=== PATIENT | female | born 1945 | race Caucasian/White ===

== ENCOUNTER → 2016-10-16 | Outpatient (CLI) | payer MEDICARE, BC ==
[2016-10-16 08:46] LABS: CH 31.9; CHCM 33.2; HCT 36.4 % (34.0-46.0); MCHC 33.1 g/dL (31.0-37.0); MCV 96.7 fL (80.0-100.0); Mean Platelet Volume 8.5; RBC 3.76 m/uL (3.80-5.40); RDW 13.3 % (11.5-15.5); WBC 5.7 k/uL (3.8-10.6)
[2016-10-16 09:06] LABS: Hemoglobin A1C 5.5 % (4.2-6.1)
[2016-10-16 09:36] LABS: Erythrocyte Sedimentation Rate 41 mm/hr (0-20)
[2016-10-16 12:31] LABS: ALT 34 U/L (9-52); AST 30 U/L (14-36); Alkaline Phosphatase 93 U/L (38-126); Anion Gap 10 mmol/L; Blood Urea Nitrogen 14 mg/dL (7-17); C Reactive Protein 7.4 mg/L (<10.0); Calcium 9.2 mg/dL (8.4-10.2); Carbon Dioxide 29 mmol/L (22-30); Chloride 106 mmol/L (98-107); Creatine Kinase 74 U/L (30-135); Glucose 107 mg/dL (74-99); Magnesium 1.9 mg/dL (1.6-2.3); Non-African American GFR(MDRD) >60 (>60 ml/min/1.73 sqM); Potassium 4.4 mmol/L (3.5-5.1); Sodium 145 mmol/L (137-145); Total Bilirubin 0.5 mg/dL (0.2-1.3); Total Protein 7.3 g/dL (6.3-8.2)
[2016-10-16 13:17] LABS: Vitamin B12 570 pg/mL
[2016-10-17 06:36] LABS: Cyclic Citrullinated Pep IgG 35 UNITS (<20)
[2016-10-21 09:28] LABS: Vitamin E (Alpha Tocopherol) 2063 ug/dL (500-1800)
[2016-10-23 01:42] LABS: Vitamin K 658 pg/mL (80-1160)
[2016-10-28 09:39] LABS: Mis test requested (Blood) Niacin(Vitamin B3)
== END | disposition home or self-care (01) ==
LOC: LABWHC1 07:49
PROVIDERS: ATTEND Psychiatry & Neurology Neurology
DX: M79.7 Fibromyalgia (principal); G89.29 Other chronic pain
CPT/HCPCS: 36415; 80053; 82306; 82550; 82607; 83036; 83519; 83735; 84207; 84425; 84446; 84590; 84591; 84597; 85027; 85652; 86140; 86200; 86235

== ENCOUNTER → 2016-10-28 | Outpatient (CLI) | payer MEDICARE, BC ==
[2016-10-28 16:19] LABS: ANA w/Reflex to Titer NEGATIVE (NEGATIVE)
[2016-10-29 05:44] LABS: Cyclic Citrullinated Pep IgG 32 UNITS (<20)
[2016-10-30 13:52] LABS: Scleroderma 70 Antibody 42 UNITS (<20)
[2016-11-04 11:43] LABS: Mis test requested (Blood) PM-Scl Antibody
== END ==
LOC: LABWHC1 07:39
PROVIDERS: ATTEND Psychiatry & Neurology Pain Medicine
DX: M79.7 Fibromyalgia (principal); Z79.899 Other long term (current) drug therapy
CPT/HCPCS: 36415; 83516; 84439; 84443; 84481; 86038; 86200; 86225; 86235

== ENCOUNTER → 2017-01-16 | Outpatient (CLI) | payer MEDICARE, BC ==
--- NOTE | 2017-01-16 10:41 | XR ---
EXAMINATION TYPE: XR knee limited bilateral DATE OF EXAM: 01/16/2017 10:19 AM COMPARISON: NONE HISTORY: Knee pain TECHNIQUE: Bilateral knees 2 views each FINDINGS: Right knee: There is narrowing of the medial compartment joint space. Medial tibial plateau spurring is present. Lateral femoral condylar spurring is present. Posterior patellar spurring is present. No joint effusion is evident. Left knee: There is noted medial compartment joint space. Medial femoral condylar spurring is present . A small lateral femoral condylar spur is present. No joint effusion is evident. Posterior patellar spurring is present. IMPRESSION: 1. 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
== END | disposition home or self-care (01) ==
LOC: RADXRMAIN 10:01
PROVIDERS: ATTEND Psychiatry & Neurology Pain Medicine
DX: M17.0 Bilateral primary osteoarthritis of knee (principal)

== ENCOUNTER → 2017-01-29 | Outpatient (CLI) | payer MEDICARE, BC ==
--- NOTE | 2017-01-30 07:47 | MR ---
EXAMINATION TYPE: MR angio head wo con DATE OF EXAM: 01/29/2017 COMPARISON: NONE HISTORY: Pt had Aneurysm with clips, info scanned TECHNIQUE: Time of flight images focusing on the [place] of [place] were performed without contrast. FINDINGS: The vertebrobasilar system, internal carotid arteries are patent. There is no evident aneur ysm or vascular malformation. No significant stenosis or atheromatous change. Susceptibility artifact is present over the left temporal region calvarium and scalp likely due to patient's known clips, pa tient is post craniotomy on the left. IMPRESSION: No evident aneurysm in the [place] of [place].
== END | disposition home or self-care (01) ==
LOC: RADMRIMAIN 18:13
PROVIDERS: ATTEND Psychiatry & Neurology Pain Medicine
DX: I72.9 Aneurysm of unspecified site (principal)
CPT/HCPCS: 70544

== ENCOUNTER → 2017-05-22 | Outpatient (CLI) | payer MEDICARE, BC | END | disposition home or self-care (01) | LOC: LABWHC1 14:04 | PROVIDERS: ATTEND Psychiatry & Neurology Pain Medicine | DX: Z01.810 Encounter for preprocedural cardiovascular examination (principal) | CPT/HCPCS: 36415; 93005 ==

== ENCOUNTER → 2017-08-12 | Outpatient (CLI) | payer MEDICARE, BC ==
--- NOTE | 2017-08-12 15:46 | BD ---
EXAMINATION TYPE: MG DEXA axial skeleton. DATE OF EXAM: 08/12/2017 COMPARISON: NONE CLINICAL HISTORY: Height: 64 Weight: 217.7 FRAX RISK QUESTIONS: Alcohol (3 or more units per day): no Family History (Parent hip fracture): no Glucocorticoids (More than 3mos): no (Ex: prednisone, prednisolone, methylprednisolone, dexamethasone, and hydrocortisone). History of Fracture in Adulthood: no Secondary Osteoporosis: 1. Type 1 Diabetes: no 2. Hyperthyroidism: no 3. Menopause before 45: no 4. Malnutrition: no 5. Chronic liver disease: no Rheumatoid Arthritis: no Current Tobacco Use: no RISK FACTORS HISTORY OF: Hip Fracture (Right/Left): no Spine Fracture: no History of Wrist Fracture: no Surgery to Spine/Hip(right/left)/Wrist (right/left): no Family History of Osteoporosis: no Active: sometimes Diet low in dairy products/other sources of calcium: no Postmenopausal woman: hysterectomy at age 55 Lost more than 2 inches in height since high school: no Frequent falls: no Poor Health: no Hyperparathyroidism: no Adrenal Insufficiency: no MEDICATIONS: lidocaine cream, omeprazole, gabapentin, fluticasone, methocorberrel, trazodone, montelu kast, ibuprofen Thyroid Medications: amourthyroid How Lon year Additional History: EXAM MEASUREMENTS: Bone mineral densitometry was performed using the [employer] System. Bone mineral density as measured about the Lumbar spine is: ----- L1-L4(G/cm2): 1.190 T Score Values are as follows: ----- L2: -0.4 ----- L3: 0.6 ----- L4: 1.1 ----- L1-L4: 0.1 Bone mineral density baseline Bone mineral density about the R hip (g/cm2): 0.764 Bone mineral density about the L hip (g/cm2): 0.859 T Score values are as follows: -----R Neck: -2.0 -----L Neck: -1.3 -----R Total: -1.7 -----L Total: -1.4 Bone mineral density baseline IMPRESSION: Osteopenia about the lumbar spine. NOTE: T-SCORE=SD OF THE YOUNG ADULT MEAN.
--- NOTE | 2017-08-22 11:40 | MM ---
Reason for exam: screening (asymptomatic). Last mammogram was performed 2 years ago. History: Patient is postmenopausal. Family history of breast cancer in maternal grandmother and breast cancer in mother. Pre-pectoral saline implants in both breasts, 2004. Physical Findings: A clinical breast exam by your physician is recommended on an annual basis and results should be correlated with mammographic findings. MG 3D Screen Mammo Imp/Cad Bilateral CC, MLO, and ID view(s) were taken. Prior study comparison: August 24, 2015, mammogram, performed at [facility]. August 09, 2014, mammogram, performed at [facility]. There are scattered fibroglandular densities. Retropectoral saline implants. New 5mm circumscribed mass 12 o'clock subareolar left breast. ASSESSMENT: Incomplete: need additional imaging evaluation, BI-RAD 0 RECOMMENDATION: Ultrasound of the left breast. [facility] will attempt to contact patient to return for ultrasound.
== END | disposition home or self-care (01) ==
LOC: RADMAMWWP 13:42
PROVIDERS: ATTEND Family Medicine
DX: Z12.31 Encounter for screening mammogram for malignant neoplasm of breast (principal); M85.88 Other specified disorders of bone density and structure, other site; Z78.0 Asymptomatic menopausal state
CPT/HCPCS: 77080; 77063; G0202

== ENCOUNTER → 2017-09-01 | Outpatient (CLI) | payer MEDICARE, BC | END | disposition home or self-care (01) | LOC: LABWHC1 15:09 | PROVIDERS: ATTEND Psychiatry & Neurology Pain Medicine | DX: Z51.81 Encounter for therapeutic drug level monitoring (principal); Z79.899 Other long term (current) drug therapy | CPT/HCPCS: 36415; 82306; 82310 ==

== ENCOUNTER → 2017-09-01 | Outpatient (CLI) | payer MEDICARE, BC ==
--- NOTE | 2017-09-02 08:13 | USB ---
Reason for exam: additional evaluation requested from abnormal screening. History: Patient is postmenopausal. Family history of breast cancer in maternal grandmother and breast cancer in mother. Pre-pectoral saline implants in both breasts, 2004. Physical Findings: Nurse did not find any significant physical abnormalities on exam. US Breast Workup Limited LT Left breast ultrasound includes all four quadrants, the retroareolar region and axilla. Finding demonstrates a 0.5 x 0.3 x 0.6cm oval, solid, vascular lesion near skin line at 10 o'clock. Recommendation is for dermatologic consult and surgical excision as this mass is partially located at the skin and there is a risk of chemical mastitis with versus guided biopsy. These results were verbally communicated with the patient and result sheet given to the patient on 09/01/17. ASSESSMENT: Suspicious, BI-RAD 4 RECOMMENDATION: Surgical consultation and localization and excision of the left breast. Manage patient on a clinical basis. Called Dr. Gipson with mammographic findings and office with contact the patient to follow up. PRELIMINARY REPORT CALLED AND FAXED TO DR. GIPSON ON 09/02/17.
== END | disposition home or self-care (01) ==
LOC: RADUSWWP 14:16
PROVIDERS: ATTEND Family Medicine
DX: R92.8 Other abnormal and inconclusive findings on diagnostic imaging of breast (principal)

== ENCOUNTER 2017-10-07 09:46 | Day surgery (SDC) | payer MEDICARE, BC ==
[2017-10-01 11:18] VITALS: BMI 34.4
[~2017-10-07 09:46] MED LIST: DEXAMETHASONE SOD PHOSPHATE 10 MG/ML 1 ML VIAL IV ONE; HEPARIN SODIUM,PORCINE 5,000 UNIT/ML 1 ML VIAL SQ ONE; LACTATED RINGERS 1,000 ML IV SCH; MIDAZOLAM 2 MG/2 ML VIAL IV PRN; MORPHINE SULFATE 4 MG/ML SYRINGE IV PRN; ONDANSETRON 4 MG/2 ML VIAL IVP ONE; Pre Op ABX Message 1 EACH MISC MISCELLANE ONE
[2017-10-07] MEDS ORDERED: LIDOCAINE 1% 20 ML VIAL (10MG/ML) FOR IV START INTRADERMA ONE (10:44)
[2017-10-07] MEDS ORDERED: ALPRAZolam 0.25 MG TAB PO ONE (10:51)
[2017-10-07] MEDS ORDERED: LIDOCAINE 1% INJ 10MG/ML (20 ML MDV) SQ ONE ×2 (11:32→14:31)
[2017-10-07] MEDS ORDERED: SODIUM BICARB 4% 5 ML VIAL (0.48 MEQ/ML) MISCELLANE ONE (11:32)
[2017-10-07] MEDS ORDERED: HEPARIN SODIUM,PORCINE 5,000 UNIT/ML 1 ML VIAL SQ ONE (14:31)
[2017-10-07] MEDS ORDERED: fentaNYL (PF) 50 MCG/ML 2 ML AMP ONE (14:43)
[2017-10-07] MEDS ORDERED: LIDOCAINE 1% INJ 10MG/ML (20 ML MDV) ONE (14:43)
[2017-10-07] MEDS ORDERED: SUCCINYLCHOLINE CHLORIDE VIAL 200 MG/10 ML VIAL IV ONE (14:43)
[2017-10-07] MEDS ORDERED: MIDAZOLAM 2 MG/2 ML VIAL ONE (14:43)
[2017-10-07] MEDS ORDERED: PROPOFOL 10 MG/ML 20 ML VIAL IV ONE (14:43)
--- NOTE | 2017-10-07 15:25 | P.OP ---
Date of Procedure: 10/07/17 Preoperative Diagnosis: Mammographic/ultrasound abnormality left breast Postoperative Diagnosis: same Procedure(s) Performed: Left breast needle localization excisional biopsy in Anesthesia: NORMAA Surgeon: Dana Cagle Estimated Blood Loss (ml): 3 IV fluids (ml): 300 Pathology: other (left breast tissue) Condition: stable Disposition: PACU Indications for Procedure: Mammographic/ultrasound abnormality left breast Operative Findings: Left breast lesion Description of Procedure: Patient was taken to the operating room and following induction of anesthesia the left breast was prepped and draped in a sterile fashion. Circumareolar incision was made and carried down to the skin. Surrounding tissue was excised with a portion of the thickened periareolar tissue. The specimen was sent for x -ray. After assured that hemostasis was attained the tissue was closed using a 4-0 Monocryl. Steri-Strips were applied. Patient tolerated procedure in stable condition. All instrument and sponge counts were correct at the end of the case
--- NOTE | 2017-10-07 15:26 | P.DS ---
Providers Attending physician: Dana Cagle Primary care physician: Steven Gipson Plan - Discharge Summary New Discharge Prescriptions: No Action Thyroid,Pork [[place] Thyroid] 60 mg PO SUTUWEFRSA Gabapentin 800 mg PO Q6HR Aspirin [Children's Aspirin] 81 mg PO HS Omeprazole [PriLOSEC] 20 mg PO AC-BRKFST Lidocaine 5% Oint [Xylocaine 5% Oint] 1 applic TOPICAL Q6HR PRN PRN Reason: Pain Montelukast [Singulair] 10 mg PO HS Ibuprofen [Motrin] 800 mg PO TID traZODone HCL [Desyrel] 100 mg PO HS Methocarbamol [Robaxin] 500 mg PO TID Fluticasone Nasal [place] [Flonase Nasal [place]] 1 spray EA NOSTRIL DAILY Albuterol Inhaler [Ventolin Hfa Inhaler] 1 - 2 puff INHALATION Q6HR PRN PRN Reason: Dyspnea traZODone HCL 0.25 tab PO HS Pyridoxine HCl (Vitamin B6) [Vitamin B-6] 100 mg PO DAILY Discharge Medication List Aspirin [Children's Aspirin] 81 mg PO HS 09/11/17 [History] Fluticasone Nasal [place] [Flonase Nasal [place]] 1 spray EA NOSTRIL DAILY 09/11/17 [History] Gabapentin 800 mg PO Q6HR 09/11/17 [History] Ibuprofen [Motrin] 800 mg PO TID 09/11/17 [History] Lidocaine 5% Oint [Xylocaine 5% Oint] 1 applic TOPICAL Q6HR PRN 09/11/17 [ History] Methocarbamol [Robaxin] 500 mg PO TID 09/11/17 [History] Montelukast [Singulair] 10 mg PO HS 09/11/17 [History] Omeprazole [PriLOSEC] 20 mg PO AC-BRKFST 09/11/17 [History] Thyroid,Pork [[place] Thyroid] 60 mg PO SUTUWEFRSA 09/11/17 [History] traZODone HCL [Desyrel] 100 mg PO HS 09/11/17 [History] Albuterol Inhaler [Ventolin Hfa Inhaler] 1 - 2 puff INHALATION Q6HR PRN [History] Pyridoxine HCl (Vitamin B6) [Vitamin B-6] 100 mg PO DAILY 10/01/17 [History] traZODone HCL 0.25 tab PO HS 10/01/17 [History] Follow up Appointment(s)/Referral(s): Dana Cagle MD [STAFF PHYSICIAN] - 1 Week Activity/Diet/Wound Care/Special Instructions: do not drive today do not shower for 48 hours wear bra at all times Discharge Disposition: HOME SELF-CARE
[2017-10-07 15:41] VITALS: TEMP 98
--- NOTE | 2017-10-07 15:53 | USB ---
EXAM: Needle localization with wire placement. CLINICAL HISTORY: Abnormal mammogram left TECHNIQUE: Needle localization with wire placement and surgical excision of area of concern in the left breast. Presurgical diagnostic two-view left breast mammogram. COMPARISON: Left breast ultrasound September 01, 2017. Three-D screening mammogram August 12, 2017. FINDINGS: The procedure of needle localization with wire placement and than surgical excision was explained to the patient. Benefits, alternatives, and risks were discussed. An informed consent was then obtained. Preprocedure imaging redemonstrates a 6 mm round hyperechoic hypervascular lesion just below the dermal layer in the left breast 10:00 position zone a near level of nipple. The overlying skin was prepped and draped in usual sterile fashion. Lidocaine buffered with bicarbonate was used as anesthetic into the skin and subcutaneous tissue up to the level of area of concern. Lidocaine with epinephrine is used as anesthetic in the deeper tissue. A 5 cm needle was used. It was placed under ultrasound guidance. At this point, wire was placed and the needle was withdrawn. The wire was fixed to patient's skin. Surgeon requested postprocedure mammogram to document wire into mammographic planes. The patient tolerated the procedure well without any immediate complication. The patient was kept in the radiology department for short stay after the procedure and then taken to surgery for surgical excision. Targeted wire is identified in specimen mammogram. The patient was kept in hospital for short stay after the procedure and then discharged home in stable condition. IMPRESSION: Successful, uncomplicated needle localization with wire placement and surgical excision of targeted ultrasound lesion in the left breast, full pathology results to follow. Intermediate index of suspicion noted at time of procedure. Pathology Results: Malignant A. LEFT BREAST, EXCISION BIOPSY: INTRADUCTAL PAPILLOMA WITH ATYPIA, FINAL CHARACTERIZATION PENDING CONSULTATION. SEE ADDENDUM/FINAL DIAGNOSIS. B. BREAST, LEFT, ANTERIOR MARGIN TISSUE, EXCISION: BENIGN SKIN AND SUBCUTANEOUS TISSUE WITHOUT SIGNIFICANT HISTOPATHOLOGIC CHANGES. ADDENDUM REPORT BREAST, LEFT, LUMPECTOMY ([id number], PART A, SLIDES A1-A4; 10/07/2017): DUCTAL CARCINOMA IN SITU (DCIS), LOW NUCLEAR GRADE, MEASURING 0.35 CM IN GREATEST DIMENSION, INVOLVING AN INTRADUCTAL PAPILLOMA. Recommendation Surgical consult of the left breast. [facility]
[2017-10-07 16:30] VITALS: RESP 16
[2017-10-07] MEDS ORDERED: IBUPROFEN 200 MG TAB PO ONE (16:42)
[2017-10-07 16:46] VITALS: BP 175/77; PULSE 74
== END 2017-10-07 17:17 | disposition home or self-care (01) ==
LOC: OR 09:46
PROVIDERS: ATTEND Surgery
DX: D24.2 Benign neoplasm of left breast (principal); D05.12 Intraductal carcinoma in situ of left breast; Z80.3 Family history of malignant neoplasm of breast; Z98.82 Breast implant status; M46.1 Sacroiliitis, not elsewhere classified; M79.7 Fibromyalgia; N83.9 Noninflammatory disorder of ovary, fallopian tube and broad ligament, unspecified; M54.5 Low back pain; G89.29 Other chronic pain; E07.9 Disorder of thyroid, unspecified; K21.9 Gastro-esophageal reflux disease without esophagitis; Z79.899 Other long term (current) drug therapy; Z79.51 Long term (current) use of inhaled steroids; Z79.890 Hormone replacement therapy; Z79.82 Long term (current) use of aspirin; Z79.1 Long term (current) use of non-steroidal anti-inflammatories (NSAID); Z91.09 Other allergy status, other than to drugs and biological substances; Z88.8 Allergy status to other drugs, medicaments and biological substances; Z87.891 Personal history of nicotine dependence
CPT/HCPCS: 19125; 88342; 88307; 88341; 77065; 76098; 19285; J2250; J0330; J1644; J1100; J2405; J2001; J3010; J2704

== ENCOUNTER → 2017-12-08 | Outpatient (CLI) | payer MEDICARE, BC | END | disposition home or self-care (01) | LOC: LABWHC1 11:11 | PROVIDERS: ATTEND Nurse Practitioner Acute Care | DX: I49.9 Cardiac arrhythmia, unspecified (principal) | CPT/HCPCS: 93005 ==

== ENCOUNTER 2017-12-27 15:03 | Emergency (ER) | payer BC, MEDICARE, OTHER ==
[2017-12-27] MEDS ORDERED: RX INFO: IV CONTRAST WAS GIVEN 1 EACH MISC MISCELLANE PRN (15:27)
[2017-12-27 15:29] VITALS: PULSE 74; RESP 96; TEMP 98.2
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
[2017-12-27 16:12] LABS: Basophils % (A) 0 %; Eosinophils # (A) 0.4 k/uL (0-0.7); Eosinophils % (A) 4 %; HCT 34.2 % (34.0-46.0); HGB 11.5 gm/dL (11.4-16.0); Lymphocytes % (A) 23 %; MCH 31.6 pg (25.0-35.0); MCHC 33.7 g/dL (31.0-37.0); MCV 93.6 fL (80.0-100.0); Mean Platelet Volume 7.8; Monocytes # (A) 0.4 k/uL (0-1.0); Monocytes % (A) 5 %; Neutrophils # (A) 5.7 k/uL (1.3-7.7); Neutrophils % (A) 67 %; Platelet Count 193 k/uL (150-450); RBC 3.65 m/uL (3.80-5.40); RDW 12.9 % (11.5-15.5); WBC 8.6 k/uL (3.8-10.6)
[2017-12-27] MEDS ORDERED: MORPHINE SULFATE 4 MG/ML SYRINGE IVP STA (16:20)
[2017-12-27 16:28] LABS: Albumin 4.3 g/dL (3.5-5.0); Calcium 9.4 mg/dL (8.4-10.2); Total Bilirubin 0.3 mg/dL (0.2-1.3); Total Protein 6.9 g/dL (6.3-8.2)
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
[2017-12-27 18:04] VITALS: BP 158/80
[2017-12-27 18:08] LABS: Appearance,Urine Clear (Clear); Bilirubin,Urine Negative (Negative); Blood,Urine Negative (Negative); Color,Urine Light Yellow; Glucose,Urine (UA) Negative (Negative); Ketones,Urine Negative (Negative); Leukocyte Esterase,Urine Negative (Negative); Nitrite,Urine Negative (Negative); Protein,Urine Negative (Negative); Urobilinogen,Urine <2.0 mg/dL (<2.0)
--- NOTE | 2017-12-27 18:16 | XR ---
EXAMINATION TYPE: XR chest 2V DATE OF EXAM: 12/27/2017 COMPARISON: NONE HISTORY: Shortness of breath TECHNIQUE: Frontal and lateral views of the chest are obtained. FINDINGS: Scattered senescent parenchymal changes noted. Hyperinflation compatible with COPD. No evidence for infiltrate. No evidence for atelectasis. Heart size is stable. Mediastinal structures are stable and grossly unremarkable. No evidence for hilar prominence. Degenerative changes dorsal spine. Curvature dorsal spine. IMPRESSION: 1. No evidence for acute pulmonary disease.
== END 2017-12-27 18:43 | disposition home or self-care (01) ==
LOC: EC 15:03
DX: S30.1XXA Contusion of abdominal wall, initial encounter (principal); C64.1 Malignant neoplasm of right kidney, except renal pelvis; R07.89 Other chest pain; M79.7 Fibromyalgia; K21.9 Gastro-esophageal reflux disease without esophagitis; E07.9 Disorder of thyroid, unspecified; Z85.3 Personal history of malignant neoplasm of breast; Z85.43 Personal history of malignant neoplasm of ovary; Z87.891 Personal history of nicotine dependence; Z79.82 Long term (current) use of aspirin; Z79.51 Long term (current) use of inhaled steroids; Z79.899 Other long term (current) drug therapy; Z88.8 Allergy status to other drugs, medicaments and biological substances; Z91.048 Other nonmedicinal substance allergy status; Z91.09 Other allergy status, other than to drugs and biological substances; V89.2XXA Person injured in unspecified motor-vehicle accident, traffic, initial encounter; Y92.410 Unspecified street and highway as the place of occurrence of the external cause
CPT/HCPCS: 36415; 80053; 85025; 81003; 71046; 72125; 70450; 74177; 99285; 96374; J2270; Q9967

== ENCOUNTER 2017-12-30 08:15 | Day surgery (SDC) | payer MEDICARE, BC ==
[2017-12-25 14:04] VITALS: BMI 35.0
[~2017-12-30 08:15] MED LIST changes: -HEPARIN SODIUM,PORCINE 5,000 UNIT/ML 1 ML VIAL SQ ONE; -MORPHINE SULFATE 4 MG/ML SYRINGE IV PRN; -ONDANSETRON 4 MG/2 ML VIAL IVP ONE; +ONDANSETRON ODT 4 MG TAB PO ONE; -Pre Op ABX Message 1 EACH MISC MISCELLANE ONE; +ceFAZolin IN SWFI 2 GM/20 ML SYRINGE IVP ONE
[2017-12-30] MEDS ORDERED: LIDOCAINE 1% 20 ML VIAL (10MG/ML) FOR IV START INTRADERMA ONE (09:29)
[2017-12-30] MEDS ORDERED: ONDANSETRON 4 MG/2 ML VIAL IVP ONE (09:30)
[2017-12-30] MEDS ORDERED: HEPARIN SODIUM,PORCINE 5,000 UNIT/ML 1 ML VIAL SQ ONE (10:00)
[2017-12-30] MEDS ORDERED: fentaNYL (PF) 50 MCG/ML 2 ML AMP ONE (10:25)
[2017-12-30] MEDS ORDERED: SUCCINYLCHOLINE CHLORIDE 100 MG/5 ML SYR IV ONE (10:25)
[2017-12-30] MEDS ORDERED: LIDOCAINE 1% INJ 10MG/ML (20 ML MDV) ONE (10:25)
[2017-12-30] MEDS ORDERED: PROPOFOL 10 MG/ML 20 ML VIAL IV ONE (10:25)
[2017-12-30] MEDS ORDERED: LIDOCAINE (PF) 10 MG/ML 2 ML VIAL SQ ONE ×2 (10:52)
--- NOTE | 2017-12-30 11:28 | P.OP ---
Date of Procedure: 12/30/17 Preoperative Diagnosis: Positive DCIS margin left breast prior lumpectomy Postoperative Diagnosis: Reexcision lumpectomy area left breast Procedure(s) Performed: Left breast lumpectomy, with tissue transfer and rearrangement Anesthesia: JOANA Surgeon: Dana Cagle Estimated Blood Loss (ml): 5 IV fluids (ml): 200 Pathology: other (Left breast tissue) Condition: stable Disposition: PACU Indications for Procedure: Left breast DCIS Operative Findings: Left breast is fibroglandular tissue Description of Procedure: The patient was taken to the operating room and following induction of general anesthesia the left breast was prepped and draped in a sterile fashion. Circumareolar incision had previously been made and incision was carried down from this area into the breast parenchyma. The tissue was carried down posteriorly to the pectoralis muscle underneath which was an implant. This was very superficial. It was followed superiorly approximately 2 cm and circumferential removal of this tissue was performed. Following this after assured that hemostasis was attained the tissue was freed from the surrounding areas superiorly and inferiorly. Approximately 4 cm in longitudinal were free to a distance of approximately 2 cm superior margin and one centimeter inferior. This tissue was then rotated into the area of the defect and secured using 3-0 Vicryl suture. The total area was approximately 12 cm. The tissue was very superficial and the area of concern was immediately underneath the skin incision. The depth to the implant was only approximately 1-1/2 cm. Following this the deeper tissues were closed with Vicryl suture. The skin was closed with 4-0 Monocryl. The patient tolerated the procedure in stable condition. The specimen was painted for orientation. All instrument and sponge counts were correct at the end of the case.
--- NOTE | 2017-12-30 11:30 | P.DS ---
Providers Attending physician: Dana Cagle Primary care physician: Steven Gipson Plan - Discharge Summary New Discharge Prescriptions: No Action Thyroid,Pork [[place] Thyroid] 60 mg PO SUTUWEFRSA Gabapentin 800 mg PO Q6HR Aspirin [Children's Aspirin] 81 mg PO HS Omeprazole [PriLOSEC] 20 mg PO AC-BRKFST Lidocaine 5% Oint [Xylocaine 5% Oint] 1 applic TOPICAL Q6HR PRN PRN Reason: Pain Montelukast [Singulair] 10 mg PO HS Ibuprofen [Motrin] 800 mg PO TID Fluticasone Nasal [place] [Flonase Nasal [place]] 1 spray EA NOSTRIL DAILY Albuterol Inhaler [Ventolin Hfa Inhaler] 1 - 2 puff INHALATION QID PRN PRN Reason: sob traZODone HCL 150 mg PO HS Pyridoxine HCl (Vitamin B6) [Vitamin B-6] 100 mg PO DAILY Lidocaine Infusions 1 applicate IV DIRECTED Hydrocodone/Acetaminophen [[place] 5-325] 1 each PO Q6HR PRN #10 tab PRN Reason: Pain Muscle Relaxant Unkown 1 tab PO TID Discharge Medication List Aspirin [Children's Aspirin] 81 mg PO HS 09/11/17 [History] Fluticasone Nasal [place] [Flonase Nasal [place]] 1 spray EA NOSTRIL DAILY 09/11/17 [History] Gabapentin 800 mg PO Q6HR 09/11/17 [History] Ibuprofen [Motrin] 800 mg PO TID 09/11/17 [History] Lidocaine 5% Oint [Xylocaine 5% Oint] 1 applic TOPICAL Q6HR PRN 09/11/17 [ History] Montelukast [Singulair] 10 mg PO HS 09/11/17 [History] Omeprazole [PriLOSEC] 20 mg PO AC-BRKFST 09/11/17 [History] Thyroid,Pork [[place] Thyroid] 60 mg PO SUTUWEFRSA 09/11/17 [History] Albuterol Inhaler [Ventolin Hfa Inhaler] 1 - 2 puff INHALATION QID PRN 09/17/17 [History] Pyridoxine HCl (Vitamin B6) [Vitamin B-6] 100 mg PO DAILY 10/01/17 [History] traZODone HCL 150 mg PO HS 10/01/17 [History] Lidocaine Infusions 1 applicate IV DIRECTED 12/25/17 [History] Hydrocodone/Acetaminophen [[place] 5-325] 1 each PO Q6HR PRN #10 tab 12/27/17 [Rx] Muscle Relaxant Unkown 1 tab PO TID 12/30/17 [History] Follow up Appointment(s)/Referral(s): Dana Cagle MD [STAFF PHYSICIAN] - 1 Week Activity/Diet/Wound Care/Special Instructions: Do not drive today Dry at all times Patient may shower tomorrow Discharge Disposition: HOME SELF-CARE
[2017-12-30] MEDS: MORPHINE SULFATE 4 MG/ML SYRINGE IVP ONE ×2 (11:36→11:41)
[2017-12-30 11:39] VITALS: TEMP 96.8
[2017-12-30] MEDS: fentaNYL (PF) 50 MCG/ML 2 ML AMP IV PRN ×2 (11:46→12:00)
[2017-12-30] MEDS ORDERED: HYDROcodone/APAP 5-325MG 1 EACH TAB PO ONE (12:48)
[2017-12-30 13:00] VITALS: RESP 18
[2017-12-30 13:48] VITALS: BP 158/70; PULSE 66
== END 2017-12-30 13:52 | disposition home or self-care (01) ==
LOC: OR 08:15
PROVIDERS: ATTEND Surgery
DX: D05.12 Intraductal carcinoma in situ of left breast (principal); D24.2 Benign neoplasm of left breast; E07.9 Disorder of thyroid, unspecified; M79.7 Fibromyalgia; G43.909 Migraine, unspecified, not intractable, without status migrainosus; K21.9 Gastro-esophageal reflux disease without esophagitis; Z79.890 Hormone replacement therapy; Z79.82 Long term (current) use of aspirin; Z79.51 Long term (current) use of inhaled steroids; Z79.1 Long term (current) use of non-steroidal anti-inflammatories (NSAID); Z79.899 Other long term (current) drug therapy; J30.1 Allergic rhinitis due to pollen; Z88.8 Allergy status to other drugs, medicaments and biological substances; Z91.09 Other allergy status, other than to drugs and biological substances; Z87.891 Personal history of nicotine dependence
CPT/HCPCS: 88342; 88307; 19301; J2270; J2001 ×2; J1644; J1100; J2405; J3010; J0330; J2704; J0690

== ENCOUNTER → 2018-01-07 | Outpatient (CLI) | payer MEDICARE, BC ==
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
== END | disposition home or self-care (01) ==
LOC: RADXRMAIN 11:22
PROVIDERS: ATTEND Family Medicine
DX: M47.898 Other spondylosis, sacral and sacrococcygeal region (principal)
CPT/HCPCS: 72220

== ENCOUNTER → 2018-01-09 | Outpatient (CLI) | payer MEDICARE, BC ==
[2018-01-09 11:42] VITALS: BP 157/73; PULSE 64; TEMP 97.9; BMI 35.9
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
== END | disposition home or self-care (01) ==
LOC: WWCWWP 11:27
PROVIDERS: ATTEND Surgery
DX: Z53.9 Procedure and treatment not carried out, unspecified reason (principal)

== ENCOUNTER → 2018-01-14 | Outpatient (CLI) | payer OTHER, MEDICARE, BC ==
--- NOTE | 2018-01-14 16:13 | CT ---
EXAMINATION TYPE: CT brain wo con DATE OF EXAM: 01/14/2018 COMPARISON: 12/27/2017 INDICATION: Right sided headache. DLP: 1103 mGycm, Automated exposure control for dose reduction was used. CONTRAST: None CT of the brain is performed utilizing 3 mm thick sections through the posterior fossa and 3 mm thick sections through the remaining calvarium. Study is performed within 24 hours of arrival to the hosp [facility]. No abnormal hyperdensity is present to suggest an acute intracranial hemorrhage. No mass lesion is evident. No acute infarcts are evident. Artifact from an aneurysm clip at the left suprasellar cistern is present. Ventricles and sulci are appropriate for the patient age. Paranasal sinuses and mastoid air cells within the [id number] are clear. There is a prior temporal craniotomy. IMPRESSIONS: 1. No acute intracranial process. Findings appear stable from comparison.
== END | disposition home or self-care (01) ==
LOC: RADCTMAIN 15:46
PROVIDERS: ATTEND Family Medicine
DX: R51 Headache (principal)
CPT/HCPCS: 70450

== ENCOUNTER → 2018-01-16 | Outpatient (CLI) | payer OTHER, MEDICARE, BC ==
--- NOTE | 2018-01-17 02:33 | MR ---
EXAMINATION TYPE: MR brain wo/w con DATE OF EXAM: 01/16/2018 COMPARISON: NONE HISTORY: Headache TECHNIQUE: Multiplanar, multisequence images of the brain and brainstem is performed without and with IV contras t, utilizing 10 mL intravenous Gadavist . FINDINGS: There is some cerebral cortical atrophy. There is no mass effect nor midline shift. There i s no sign of intracranial hemorrhage. There is no evidence of cerebral edema. There is a single 5 mm focus of increased signal in the white matter right parietal lobe. The brain stem is intact. Corpus c allosum appears normal. Sella turcica appears normal. I see no pathologic enhancement. There is unifo rm enhancement of the pituitary gland. Pituitary stalk is in the midline. Optic chiasm appears normal . IMPRESSION: Mild atrophy appropriate for age. Single small focus of increased signal in the right par ietal lobe white matter of uncertain significance.
== END | disposition home or self-care (01) ==
LOC: RADMRIMAIN 20:35
PROVIDERS: ATTEND Psychiatry & Neurology Neurology
DX: G31.1 Senile degeneration of brain, not elsewhere classified (principal); R90.89 Other abnormal findings on diagnostic imaging of central nervous system
CPT/HCPCS: 70553; A9581

== ENCOUNTER 2018-01-20 09:23 | Day surgery (SDC) | payer MEDICARE, BC ==
[2018-01-16 10:12] VITALS: BMI 35.9
[~2018-01-20 09:23] MED LIST changes: -DEXAMETHASONE SOD PHOSPHATE 10 MG/ML 1 ML VIAL IV ONE; +HEPARIN SODIUM,PORCINE 5,000 UNIT/ML 1 ML VIAL SQ ONE; -LACTATED RINGERS 1,000 ML IV SCH; +LIDOCAINE 1% 20 ML VIAL (10MG/ML) FOR IV START INTRADERMA PRN; -MIDAZOLAM 2 MG/2 ML VIAL IV PRN; -ONDANSETRON ODT 4 MG TAB PO ONE; +Pre Op ABX Message 1 EACH MISC MISCELLANE ONE; -ceFAZolin IN SWFI 2 GM/20 ML SYRINGE IVP ONE
[2018-01-20] MEDS: LACTATED RINGERS 1,000 ML IV SCH (10:15)
[2018-01-20] MEDS ORDERED: ONDANSETRON 4 MG/2 ML VIAL IVP ONE ×2 (10:16→15:08)
[2018-01-20] MEDS ORDERED: HEPARIN SODIUM,PORCINE 5,000 UNIT/ML 1 ML VIAL SQ ONE (11:36)
--- NOTE | 2018-01-20 11:42 | P.PN ---
Progress Note - Text Progress Note Date: 01/20/18 The patient's case was reviewed with Dr. Mccall from medical oncology. The patient had a biopsy and was noted to have DCIS patient had re-excision and was noted to have additional DCIS close to the resection margin. All treatment options were discussed with the patient including close surveillance with radiation and possible anti-hormonal therapy. The patient has a positive family history of breast cancer. The patient opted for a mastectomy. The patient understands the risks and benefits. Additionally the patient has a prepectoral implant. The patient does not want reconstruction at this time. She understands the implant will be removed.
[2018-01-20] MEDS ORDERED: HYDROmorphone (PF) 1 MG/ML ONE (12:02)
[2018-01-20] MEDS ORDERED: SUCCINYLCHOLINE CHLORIDE 100 MG/5 ML SYR IV ONE (12:02)
[2018-01-20] MEDS ORDERED: PROPOFOL 10 MG/ML 20 ML VIAL IV ONE (12:02)
[2018-01-20] MEDS ORDERED: fentaNYL (PF) 50 MCG/ML 2 ML AMP ONE (12:02)
[2018-01-20] MEDS ORDERED: LIDOCAINE 1% INJ 10MG/ML (20 ML MDV) ONE (12:02)
[2018-01-20] MEDS ORDERED: SODIUM CHLORIDE 0.9% 50 ML with ceFAZolin 2,000 MG IV ONE ×2 (12:20)
[2018-01-20] MEDS ORDERED: LACTATED RINGERS 1,000 ML IV ONE ×3 (12:42)
--- NOTE | 2018-01-20 14:05 | P.OP ---
Date of Procedure: 01/20/18 Preoperative Diagnosis: Left breast DCIS Postoperative Diagnosis: Same Procedure(s) Performed: Left simple mastectomy and removal of breast implant Anesthesia: JOANA Surgeon: Dana Cagle Estimated Blood Loss (ml): 20 IV fluids (ml): 500 Pathology: other (Left breast) Condition: stable Disposition: PACU Indications for Procedure: Left breast ductal carcinoma in situ Operative Findings: Dense breast tissue Description of Procedure: The patient is a 72-year-old white female who underwent a left breast biopsy and was noted to have ductal carcinoma in situ. The lesion was close to the margins and the patient opted for a mastectomy. The patient had previously undergone breast implants and she wished the left breast implant to be removed. She was offered evaluation by plastic surgeon and refused. The patient was taken to the operating room and the left breast was prepped and draped in a sterile fashion. Superior and inferior skin flaps were developed down to the pectoralis major muscle. At the medial aspect of dissection the area of the implant was identified as it was inferiorly. The implant was easily extruded from its partially subpectoral location. The inferior skin flap continued to be developed. The breast was taken from medial to lateral off of the pectoralis muscle being careful to maintain hemostasis using the Harmonic scalpel. Several sutures were placed inferiorly at the site where the implant had been extruded. The wound was well irrigated. After we were assured that hemostasis was attained the deep tissues were closed using a 3-0 Vicryl suture. A [place] drain had been placed under the flaps. The skin was closed using 4-0 Monocryl. The drain was secured using a nylon suture. The patient tolerated the procedure in stable condition. All instrument and sponge counts were correct at the end of the case.
[2018-01-20] MEDS ORDERED: NALOXONE 0.4 MG/ML 1 ML VIAL IV PRN (14:07)
[2018-01-20] MEDS: fentaNYL (PF) 50 MCG/ML 2 ML AMP IV PRN ×2 (14:22→14:27)
[2018-01-20] MEDS: HYDROmorphone 0.5 MG/0.5 ML SYRINGE IVP PRN ×4 (14:45→23:04)
[2018-01-20] MEDS ORDERED: ALBUTEROL NEBULIZED 2.5 MG/3 ML INHALATION PRN (16:15)
[2018-01-20] MEDS ORDERED: LIDOCAINE 5% OINTMENT 50 GM JAR TOPICAL PRN (16:15)
[2018-01-20] MEDS: THYROID, PORK 30 MG TAB PO SCH (16:52)
[2018-01-20] MEDS: GABAPENTIN 400 MG CAP PO SCH ×2 (16:54→23:11)
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
[2018-01-20] MEDS: ONDANSETRON 4 MG/2 ML VIAL IVP PRN (20:27)
[2018-01-20] MEDS: DEXTROSE 5%-0.45% NACL 1,000 ML IV SCH (21:08)
[2018-01-20] MEDS: HEPARIN SODIUM,PORCINE 5,000 UNIT/ML 1 ML VIAL SQ SCH (21:10)
[2018-01-20] MEDS: traZODone HCL 50 MG TAB PO SCH (21:11)
[2018-01-20] MEDS: FAMOTIDINE 20 MG TAB PO SCH (21:11)
[2018-01-20] MEDS: MONTELUKAST 10 MG TAB PO SCH (21:11)
[2018-01-20] MEDS: METHOCARBAMOL 500 MG TAB PO PRN (23:25)
[2018-01-21] MEDS: HYDROmorphone 0.5 MG/0.5 ML SYRINGE IVP PRN ×4 (04:22→20:16)
[2018-01-21] MEDS: GABAPENTIN 400 MG CAP PO SCH ×4 (06:55→23:18)
[2018-01-21] MEDS: PANTOPRAZOLE 40 MG TABLET PO SCH (06:55)
[2018-01-21] MEDS: THYROID, PORK 30 MG TAB PO SCH (06:55)
[2018-01-21] MEDS: DEXTROSE 5%-0.45% NACL 1,000 ML IV SCH ×3 (06:56→17:17)
[2018-01-21 07:17] LABS: Basophils % (A) 0 %; Eosinophils # (A) 0.1 k/uL (0-0.7); Eosinophils % (A) 1 %; HCT 30.4 % (34.0-46.0); Lymphocytes # (A) 1.7 k/uL (1.0-4.8); Lymphocytes % (A) 18 %; MCH 31.7 pg (25.0-35.0); MCHC 32.4 g/dL (31.0-37.0); MCV 97.7 fL (80.0-100.0); Mean Platelet Volume 7.7; Monocytes # (A) 0.5 k/uL (0-1.0); Monocytes % (A) 6 %; Neutrophils % (A) 74 %; Platelet Count 162 k/uL (150-450); RBC 3.11 m/uL (3.80-5.40); RDW 13.2 % (11.5-15.5); WBC 9.5 k/uL (3.8-10.6)
[2018-01-21] MEDS: LACTATED RINGERS 1,000 ML IV SCH (07:21)
[2018-01-21 07:43] LABS: HGB 9.8 gm/dL (11.4-16.0)
[2018-01-21] MEDS: HEPARIN SODIUM,PORCINE 5,000 UNIT/ML 1 ML VIAL SQ SCH ×2 (09:09→20:15)
[2018-01-21] MEDS: FLUTICASONE 50MCG/SPRAY NASAL 16GM EA NOSTRIL SCH (09:09)
[2018-01-21] MEDS: FAMOTIDINE 20 MG TAB PO SCH (09:10)
--- NOTE | 2018-01-21 11:42 | P.PN ---
Subjective Progress Note Date: 01/21/18 Patient is postop day #1 left mastectomy. At this time she is having some nausea and has not tolerated her diet well. She has no complaints related to her incision. Her DEJON drainage is 15 mL and is serosanguineous. Hemoglobin is 9.8. Objective - Vital Signs Vital signs: Vital Signs Temp 98.0 F 01/21/18 07:45 Pulse 60 01/21/18 08:52 Resp 16 01/21/18 07:45 BP 118/72 01/21/18 07:45 Pulse Ox 96 01/21/18 07:45 Intake & Output 01/20/18 01/21/18 01/21/18 18:59 06:59 18:59 Intake Total 1300 Output Total 40 730 15 Balance 1260 -730 -15 Intake: IV 1300 Output: Drainage 20 30 15 Left Cheek 20 30 15 Urine 700 Estimated Blood Loss 20 Other: # Voids 1 1 - Constitutional General appearance: Present: obese - Respiratory Respiratory: bilateral: CTA - Cardiovascular Heart sounds: normal: S1, S2 - Integumentary Integumentary Comment(s): Incision clean and dry No evidence of hematoma DEJON serosanguineous - Psychiatric Psychiatric: Present: A&O x's 3, appropriate affect, intact judgment & insight - Labs CBC & Chem 7: 01/21/18 06:48 Labs: Abnormal Lab Results - Last 24 Hours (Table) 01/21/18 Range/Units 06:48 RBC 3.11 L (3.80-5.40) m/uL Hgb 9.8 L D (11.4-16.0) gm/dL Hct 30.4 L (34.0-46.0) % Assessment and Plan Assessment: Impression/plan: 1. Postop day left mastectomy 2. Nausea postoperative 3. History of hyperlipidemia 4. Hypothyroidism 5. ALLERGIC rhinitis 6. Fibromyalgia 7. Stop spinal stenosis 8. History of intracranial aneurysm 9. Insomnia 10. Asthma Plan: 1. Continue present therapy 2. Probable discharge home tomorrow
--- NOTE | 2018-01-21 12:07 | P.PN ---
Subjective Patient resting in bed states pain controlled encouraged to do deep breathing exercises. Objective - Vital Signs Vital signs: Vital Signs Temp 98.0 F 01/21/18 07:45 Pulse 60 01/21/18 08:52 Resp 16 01/21/18 07:45 BP 118/72 01/21/18 07:45 Pulse Ox 96 01/21/18 07:45 Intake & Output 01/20/18 01/21/18 01/21/18 18:59 06:59 18:59 Intake Total 1300 Output Total 40 730 15 Balance 1260 -730 -15 Intake: IV 1300 Output: Drainage 20 30 15 Left Cheek 20 30 15 Urine 700 Estimated Blood Loss 20 Other: # Voids 1 1 - Constitutional General appearance: Present: obese - EENT Eyes: Present: PERRLA Ears: bilateral: normal - Neck Neck: Present: normal ROM - Cardiovascular Rhythm: regular - Gastrointestinal General gastrointestinal: Present: soft Localized gastrointestinal: tender: diffuse - Integumentary Integumentary: Present: normal - Neurologic Neurologic: Present: CNII-XII intact - Psychiatric Psychiatric: Present: A&O x's 3, appropriate affect, intact judgment & insight - Labs CBC & Chem 7: 01/21/18 06:48 Labs: Abnormal Lab Results - Last 24 Hours (Table) 01/21/18 Range/Units 06:48 RBC 3.11 L (3.80-5.40) m/uL Hgb 9.8 L D (11.4-16.0) gm/dL Hct 30.4 L (34.0-46.0) % Assessment and Plan Plan: Assessment Left mastectomy postoperative History of hyperlipidemia Hypothyroidism ALLERGIC rhinitis Obesity BMI 35.9 Fibromyalgia Lumbar spinal stenosis History of intracranial aneurysm Asthma Plan Continue to monitor patient Stable for discharge
[2018-01-21 12:45] LABS: ALT 30 U/L (9-52); AST 20 U/L (14-36); Albumin 3.5 g/dL (3.5-5.0); Alkaline Phosphatase 61 U/L (38-126); Anion Gap 8 mmol/L; Blood Urea Nitrogen 14 mg/dL (7-17); Calcium 8.7 mg/dL (8.4-10.2); Carbon Dioxide 28 mmol/L (22-30); Chloride 102 mmol/L (98-107); Glucose 107 mg/dL (74-99); Potassium 4.1 mmol/L (3.5-5.1); Sodium 138 mmol/L (137-145); Total Bilirubin 0.4 mg/dL (0.2-1.3); Total Protein 5.8 g/dL (6.3-8.2)
[2018-01-21] MEDS: ACETAMINOPHEN TAB 500 MG TAB PO PRN (20:15)
[2018-01-21] MEDS: MONTELUKAST 10 MG TAB PO SCH (20:15)
[2018-01-21] MEDS: traZODone HCL 50 MG TAB PO SCH (20:16)
[2018-01-21] MEDS: METHOCARBAMOL 500 MG TAB PO PRN (23:18)
[2018-01-22] MEDS ORDERED: HYDROmorphone 0.5 MG/0.5 ML SYRINGE ONE (05:00)
[2018-01-22] MEDS: DEXTROSE 5%-0.45% NACL 1,000 ML IV SCH (06:20)
[2018-01-22] MEDS: PANTOPRAZOLE 40 MG TABLET PO SCH (06:23)
[2018-01-22] MEDS: GABAPENTIN 400 MG CAP PO SCH (06:23)
[2018-01-22] MEDS: ONDANSETRON 4 MG/2 ML VIAL IVP PRN (06:55)
--- NOTE | 2018-01-22 08:12 | P.PN ---
Subjective Progress Note Date: 01/22/18 Patient is postop day #2 left mastectomy. She is tolerating her diet. Her nausea has decreased. She has no complaints related to her incision. Her DEJON drainage is serosanguineous. Objective - Vital Signs Vital signs: Vital Signs Temp 98.2 F 01/21/18 23:16 Pulse 57 L 01/21/18 23:16 Resp 18 01/21/18 23:16 BP 122/71 01/21/18 23:16 Pulse Ox 94 L 01/21/18 23:16 Intake & Output 01/21/18 01/22/18 01/22/18 18:59 06:59 18:59 Intake Total 680 200 Output Total 15 50 Balance 665 150 Intake: Oral 680 200 Output: Drainage 15 50 Left Cheek 15 50 Other: # Voids 1 1 - Constitutional General appearance: Present: obese - Respiratory Respiratory: bilateral: CTA - Cardiovascular Rhythm: regular Heart sounds: normal: S1, S2 - Integumentary Integumentary Comment(s): Incision clean and dry No evidence of hematoma - Psychiatric Psychiatric: Present: A&O x's 3, appropriate affect, intact judgment & insight - Labs CBC & Chem 7: 01/21/18 06:48 01/21/18 06:48 Labs: Abnormal Lab Results - Last 24 Hours (Table) 01/21/18 Range/Units 06:48 Glucose 107 H (74-99) mg/dL Total Protein 5.8 L (6.3-8.2) g/dL Assessment and Plan Assessment: Impression/plan: 1. Postop day#2 left mastectomy 2. Nausea postoperative improved tolerating diet 3. History of hyperlipidemia 4. Hypothyroidism 5. ALLERGIC rhinitis 6. Fibromyalgia 7. Stop spinal stenosis 8. History of intracranial aneurysm 9. Insomnia 10. Asthma Plan: 1. Discharge home to be followed as an outpatient 2. Teach patient drain care
--- NOTE | 2018-01-22 08:15 | P.DS ---
Providers Attending physician: Dana Cagle Consults: 01/20/18 14:10 Consult Physician Routine Consulting Provider: Steven Gipson Consult Reason/Comments: medical managment Do you want consulting provider notified?: Yes Primary care physician: Steven Gipson Hospital Course: Patient is a 72-year-old white female status post left mastectomy. Initially postoperative she had some nausea and was kept in the hospital 1 extra day. At this time the nausea has improved and she is tolerating her diet. The plan is for discharge home to be followed as an outpatient. Plan - Discharge Summary Discharge Rx Participant: No New Discharge Prescriptions: No Action Thyroid,Pork [[place] Thyroid] 60 mg PO SUTUWEFRSA Gabapentin 800 mg PO Q6HR Aspirin [Children's Aspirin] 81 mg PO HS Omeprazole [PriLOSEC] 20 mg PO AC-BRKFST Lidocaine 5% Oint [Xylocaine 5% Oint] 1 applic TOPICAL Q6HR PRN PRN Reason: Pain Montelukast [Singulair] 10 mg PO HS Ibuprofen [Motrin] 800 mg PO TID Fluticasone Nasal [place] [Flonase Nasal [place]] 1 spray EA NOSTRIL DAILY Albuterol Inhaler [Ventolin Hfa Inhaler] 1 - 2 puff INHALATION QID PRN PRN Reason: sob traZODone HCL 150 mg PO HS Pyridoxine HCl (Vitamin B6) [Vitamin B-6] 100 mg PO DAILY Lidocaine Infusions 1 applicate IV DIRECTED Methocarbamol [Robaxin] 1,500 mg PO TID Discharge Medication List Aspirin [Children's Aspirin] 81 mg PO HS 09/11/17 [History] Fluticasone Nasal [place] [Flonase Nasal [place]] 1 spray EA NOSTRIL DAILY 09/11/17 [History] Gabapentin 800 mg PO Q6HR 09/11/17 [History] Ibuprofen [Motrin] 800 mg PO TID 09/11/17 [History] Lidocaine 5% Oint [Xylocaine 5% Oint] 1 applic TOPICAL Q6HR PRN 09/11/17 [ History] Montelukast [Singulair] 10 mg PO HS 09/11/17 [History] Omeprazole [PriLOSEC] 20 mg PO AC-BRKFST 09/11/17 [History] Thyroid,Pork [[place] Thyroid] 60 mg PO SUTUWEFRSA 09/11/17 [History] Albuterol Inhaler [Ventolin Hfa Inhaler] 1 - 2 puff INHALATION QID PRN 09/17/17 [History] Pyridoxine HCl (Vitamin B6) [Vitamin B-6] 100 mg PO DAILY 10/01/17 [History] traZODone HCL 150 mg PO HS 10/01/17 [History] Lidocaine Infusions 1 applicate IV DIRECTED 12/25/17 [History] Methocarbamol [Robaxin] 1,500 mg PO TID 12/30/17 [History] Follow up Appointment(s)/Referral(s): Dana Cagle MD [STAFF PHYSICIAN] - 1 Week Activity/Diet/Wound Care/Special Instructions: Do not drive until seen by Dr. Gipson Drain and record DEJON output twice a day and when necessary Discharge Disposition: HOME SELF-CARE
[2018-01-22] MEDS: ACETAMINOPHEN TAB 500 MG TAB PO PRN (08:29)
[2018-01-22 08:37] VITALS: BP 128/67; PULSE 59; RESP 16; TEMP 97.8
[2018-01-22] MEDS: METHOCARBAMOL 500 MG TAB PO PRN (08:48)
[2018-01-22] MEDS: FLUTICASONE 50MCG/SPRAY NASAL 16GM EA NOSTRIL SCH (10:00)
[2018-01-22] MEDS ORDERED: HYDROmorphone 4 MG TABLET PO PRN (10:38)
--- NOTE | 2018-01-22 12:18 | P.PN ---
Progress Note - Text Patient seen by Dr. Gipson patient cleared for discharge
== END 2018-01-22 10:55 | disposition home or self-care (01) ==
LOC: OR 09:23 → 6PED 14:30 → OR 01-22 10:55
PROVIDERS: ATTEND Surgery
DX: C50.912 Malignant neoplasm of unspecified site of left female breast (principal); R11.0 Nausea; E78.5 Hyperlipidemia, unspecified; E03.9 Hypothyroidism, unspecified; J45.909 Unspecified asthma, uncomplicated; M79.7 Fibromyalgia; M48.061 Spinal stenosis, lumbar region without neurogenic claudication; G47.00 Insomnia, unspecified; Z80.3 Family history of malignant neoplasm of breast; E66.9 Obesity, unspecified; Z68.35 Body mass index [BMI] 35.0-35.9, adult; K21.9 Gastro-esophageal reflux disease without esophagitis; D64.3 Other sideroblastic anemias; R25.1 Tremor, unspecified; D41.01 Neoplasm of uncertain behavior of right kidney; R35.0 Frequency of micturition; R35.1 Nocturia; R39.16 Straining to void; G43.909 Migraine, unspecified, not intractable, without status migrainosus; Z79.890 Hormone replacement therapy; Z79.51 Long term (current) use of inhaled steroids; Z79.82 Long term (current) use of aspirin; Z79.899 Other long term (current) drug therapy; Z91.09 Other allergy status, other than to drugs and biological substances; Z88.8 Allergy status to other drugs, medicaments and biological substances; Z88.5 Allergy status to narcotic agent; Z87.891 Personal history of nicotine dependence
CPT/HCPCS: 94640; 80053; 85025; 88307; 19303; J1644 ×2; J2405 ×2; J2001; J3010; J1170 ×4; J0690; J0330; J2704

== ENCOUNTER → 2018-01-29 | Outpatient (CLI) | payer MEDICARE, BC ==
[2018-01-29 09:16] VITALS: BP 144/67; PULSE 70; TEMP 98.1; BMI 35.2
--- NOTE | 2018-01-29 09:50 | P.PN ---
Subjective Progress Note Date: 01/29/18 The patient is a 72-year-old white female status post left mastectomy 2017. At this time she is doing well with no complaints. Her DEJON drainage is minimal at less than 30 mL per 24-hour period for several days in a row. It is serous in nature. There is no evidence of any infection. The pathology revealed residual ductal carcinoma in situ approximately 1 mm in size. She is going to follow with Dr. Mccall from medical oncology. She will follow up here in 3 months time. The patient additionally was noted to have a kidney lesion for which she has been seen by Dr. Park and is planning surgery at [facility]. Objective - Vital Signs Vital signs: Vital Signs Temp 98.1 F 01/29/18 09:03 Pulse 70 01/29/18 09:03 Resp BP 144/67 01/29/18 09:03 Pulse Ox Intake & Output 01/28/18 01/29/18 01/29/18 18:59 06:59 18:59 Weight 97.522 kg - Constitutional General appearance: Present: obese - EENT Eyes: Present: EOMI - Integumentary Integumentary Comment(s): Incision clean and dry DEJON drainage serous and minimal No evidence of any infection or swelling - Psychiatric Psychiatric: Present: A&O x's 3, appropriate affect, intact judgment & insight Assessment and Plan Assessment: Impression/plan: 1. 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 Status post left mastectomy doing well 3. kidney lesion being followed at [facility] Plan: 1. follow up in three months, or sooner if any questions 2. follow up with DR. Mccall (medical oncology) 3. breast prosthesis
== END | disposition home or self-care (01) ==
LOC: WWCWWP 08:59
PROVIDERS: ATTEND Surgery
DX: Z53.9 Procedure and treatment not carried out, unspecified reason (principal)

== ENCOUNTER → 2018-03-19 | Outpatient (CLI) | payer MEDICARE, BC ==
[2018-03-19 09:41] LABS: Basophils % (A) 1 %; Eosinophils # (A) 0.4 k/uL (0-0.7); Eosinophils % (A) 7 %; HGB 11.4 gm/dL (11.4-16.0); Lymphocytes # (A) 1.7 k/uL (1.0-4.8); Lymphocytes % (A) 28 %; MCH 31.2 pg (25.0-35.0); MCHC 32.5 g/dL (31.0-37.0); MCV 96.1 fL (80.0-100.0); Mean Platelet Volume 7.2; Monocytes # (A) 0.3 k/uL (0-1.0); Monocytes % (A) 6 %; Neutrophils # (A) 3.5 k/uL (1.3-7.7); Neutrophils % (A) 56 %; Platelet Count 214 k/uL (150-450); RBC 3.64 m/uL (3.80-5.40); RDW 13.2 % (11.5-15.5); WBC 6.1 k/uL (3.8-10.6)
[2018-03-19 09:53] LABS: ALT 37 U/L (9-52); AST 33 U/L (14-36); Albumin 4.4 g/dL (3.5-5.0); Alkaline Phosphatase 83 U/L (38-126); Anion Gap 9 mmol/L; Blood Urea Nitrogen 17 mg/dL (7-17); Calcium 9.3 mg/dL (8.4-10.2); Carbon Dioxide 28 mmol/L (22-30); Chloride 105 mmol/L (98-107); Glucose 127 mg/dL (74-99); Potassium 4.2 mmol/L (3.5-5.1); Sodium 142 mmol/L (137-145); Total Bilirubin 0.4 mg/dL (0.2-1.3)
== END | disposition home or self-care (01) ==
LOC: LABPAT 09:18
PROVIDERS: ATTEND Urology
DX: Z01.812 Encounter for preprocedural laboratory examination (principal); D41.01 Neoplasm of uncertain behavior of right kidney
CPT/HCPCS: 36415; 80053; 85025

== ENCOUNTER → 2018-03-23 | Outpatient (CLI) | payer OTHER ==
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
== END | disposition home or self-care (01) ==
LOC: RADMRIMAIN 07:49
PROVIDERS: ATTEND Midwife
DX: M48.061 Spinal stenosis, lumbar region without neurogenic claudication (principal); M51.27 Other intervertebral disc displacement, lumbosacral region
CPT/HCPCS: 72148

== ENCOUNTER → 2018-03-24 | Outpatient (CLI) | payer OTHER ==
--- NOTE | 2018-03-24 09:03 | MR ---
EXAMINATION TYPE: MR angio head wo con DATE OF EXAM: 03/24/2018 COMPARISON: MRA brain January 29, 2017 HISTORY: Vision Changes, Diseases of the Circulatory System TECHNIQUE: Time of flight images focusing on the [place] were performed without contrast.. 2-D and 3-D postprocessing imaging is performed on MRI scanner. FINDINGS: A dominant left vertebral artery is redemonstrated. Vertebral arteries are patent to basila r junction. There is no significant focal stenosis or aneurysmal change in the posterior circulation. Patent right posterior communicating artery is redemonstrated. There is hypoplastic left posterior c ommunicating artery again seen. Images of the anterior circulation show patent anterior communicating artery. There is no significant focal stenosis or aneurysmal change identified. Artifact from left frontal craniotomy changes redemo nstrated. Artifact from aneurysm clip distal internal carotid artery axial image 73 redemonstrated le ft aspect suprasellar cistern. IMPRESSION: Prior aneurysm clip redemonstrated. No new aneurysm identified.
== END | disposition home or self-care (01) ==
LOC: RADMRIMAIN 07:19
PROVIDERS: ATTEND Psychiatry & Neurology Pain Medicine
DX: Z09 Encounter for follow-up examination after completed treatment for conditions other than malignant neoplasm (principal); Z86.79 Personal history of other diseases of the circulatory system
CPT/HCPCS: 70544

== ENCOUNTER → 2018-05-01 | Outpatient (CLI) | payer MEDICARE, BC ==
--- NOTE | 2018-05-01 13:34 | US ---
EXAMINATION TYPE: US venous doppler duplex LE DATE OF EXAM: 05/01/2018 1:23 PM COMPARISON: NONE CLINICAL HISTORY: M79.662 PAIN LLL,R22.42 SWELLING,M79.661PAIN RLL,R22.41. Symptoms x 3 months SIDE PERFORMED: Bilateral TECHNIQUE: The lower extremity deep venous system is examined utilizing real time linear array sonog ariadne with graded compression, doppler sonography and color-flow sonography. VESSELS IMAGED: Common Femoral Vein Deep Femoral Vein Greater Saphenous Vein * Femoral Vein Popliteal Vein Small Saphenous Vein * Proximal Calf Veins (* superficial vessels) Right Leg: Negative for DVT Left Leg: Negative for DVT Grayscale, color doppler, spectral doppler imaging performed of the deep veins of the bilateral lower extremities. There is normal flow, compressibility, vascular waveforms. IMPRESSION: No ultrasound evidence for acute DVT in either lower extremity.
== END | disposition home or self-care (01) ==
LOC: RADUSWWP 12:35
PROVIDERS: ATTEND Family Medicine
DX: R22.43 Localized swelling, mass and lump, lower limb, bilateral (principal)
CPT/HCPCS: 93970

== ENCOUNTER → 2018-05-01 | Outpatient (CLI) | payer MEDICARE, BC ==
[2018-05-01 12:45] LABS: Basophils % (A) 1 %; Eosinophils # (A) 0.3 k/uL (0-0.7); Eosinophils % (A) 5 %; HCT 37.9 % (34.0-46.0); HGB 12.3 gm/dL (11.4-16.0); Lymphocytes # (A) 1.6 k/uL (1.0-4.8); Lymphocytes % (A) 25 %; MCH 31.6 pg (25.0-35.0); MCHC 32.6 g/dL (31.0-37.0); MCV 96.8 fL (80.0-100.0); Mean Platelet Volume 7.5; Monocytes # (A) 0.3 k/uL (0-1.0); Monocytes % (A) 5 %; Neutrophils % (A) 62 %; Platelet Count 193 k/uL (150-450); RBC 3.91 m/uL (3.80-5.40); RDW 12.9 % (11.5-15.5); WBC 6.5 k/uL (3.8-10.6)
[2018-05-01 12:55] LABS: ALT 34 U/L (9-52); AST 29 U/L (14-36); Albumin 4.4 g/dL (3.5-5.0); Alkaline Phosphatase 75 U/L (38-126); Anion Gap 10 mmol/L; Blood Urea Nitrogen 18 mg/dL (7-17); Calcium 9.2 mg/dL (8.4-10.2); Carbon Dioxide 26 mmol/L (22-30); Chloride 107 mmol/L (98-107); Glucose 104 mg/dL (74-99); Potassium 4.4 mmol/L (3.5-5.1); Sodium 143 mmol/L (137-145); Total Bilirubin 0.3 mg/dL (0.2-1.3); Total Protein 7.5 g/dL (6.3-8.2)
== END | disposition home or self-care (01) ==
LOC: LABWHC1 12:25
PROVIDERS: ATTEND Urology
DX: Z01.812 Encounter for preprocedural laboratory examination (principal); D41.01 Neoplasm of uncertain behavior of right kidney
CPT/HCPCS: 36415; 80053; 85025; 86850; 86900; 86901

== ENCOUNTER → 2018-05-01 | Outpatient (CLI) | payer MEDICARE, BC ==
[2018-05-01 11:03] VITALS: BP 163/81; PULSE 64; RESP 14; TEMP 97.9; BMI 35.5
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
== END | disposition home or self-care (01) ==
LOC: WWCWWP 10:00
PROVIDERS: ATTEND Surgery
DX: Z53.9 Procedure and treatment not carried out, unspecified reason (principal)

== ENCOUNTER → 2018-06-08 | Outpatient (CLI) | payer MEDICARE, BC ==
[2018-06-08 09:20] LABS: Basophils % (A) 1 %; Eosinophils # (A) 0.3 k/uL (0-0.7); Eosinophils % (A) 5 %; HCT 36.8 % (34.0-46.0); HGB 12.3 gm/dL (11.4-16.0); Lymphocytes # (A) 1.8 k/uL (1.0-4.8); Lymphocytes % (A) 30 %; MCH 32.2 pg (25.0-35.0); MCHC 33.5 g/dL (31.0-37.0); MCV 96.1 fL (80.0-100.0); Mean Platelet Volume 7.8; Monocytes # (A) 0.3 k/uL (0-1.0); Monocytes % (A) 5 %; Neutrophils # (A) 3.4 k/uL (1.3-7.7); Neutrophils % (A) 58 %; Platelet Count 207 k/uL (150-450); RBC 3.83 m/uL (3.80-5.40); WBC 5.9 k/uL (3.8-10.6)
[2018-06-08 09:52] LABS: Albumin 4.2 g/dL (3.5-5.0); Calcium 9.3 mg/dL (8.4-10.2); Potassium 4.2 mmol/L (3.5-5.1); Total Bilirubin 0.4 mg/dL (0.2-1.3); Total Protein 7.4 g/dL (6.3-8.2)
== END ==
LOC: LABPAT 08:28
PROVIDERS: ATTEND Urology
DX: Z01.812 Encounter for preprocedural laboratory examination (principal); D41.01 Neoplasm of uncertain behavior of right kidney
CPT/HCPCS: 36415; 80053; 85025

== ENCOUNTER 2018-06-15 10:45 | Inpatient (IN) | payer MEDICARE, BC ==
[2018-06-09 09:08] VITALS: BMI 38.7
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
[~2018-06-15 10:45] MED LIST changes: -HEPARIN SODIUM,PORCINE 5,000 UNIT/ML 1 ML VIAL SQ ONE; +HYDROmorphone 0.5 MG/0.5 ML SYRINGE IVP PRN; +LACTATED RINGERS 1,000 ML IV SCH; +MIDAZOLAM 2 MG/2 ML VIAL IV PRN; -Pre Op ABX Message 1 EACH MISC MISCELLANE ONE; +ceFAZolin IN SWFI 2 GM/20 ML SYRINGE IVP ONE
[2018-06-15] MEDS: DEXAMETHASONE SOD PHOSPHATE 10 MG/ML 1 ML VIAL IV ONE ×2 (11:25→18:14)
[2018-06-15] MEDS: ONDANSETRON 4 MG/2 ML VIAL IVP ONE ×2 (11:25→18:14)
[2018-06-15] MEDS ORDERED: HEPARIN SODIUM,PORCINE 5,000 UNIT/ML 1 ML VIAL SQ ONE (12:14)
[2018-06-15] MEDS ORDERED: MIDAZOLAM 2 MG/2 ML VIAL ONE ×2 (12:32)
[2018-06-15] MEDS ORDERED: ROCURONIUM BROMIDE 10 MG/ML 10 ML VIAL IV ONE (12:32)
[2018-06-15] MEDS ORDERED: DEXAMETHASONE SOD PHOS (MDV) 100 MG/10 ML VIAL ONE (12:32)
[2018-06-15] MEDS ORDERED: NEOSTIGMINE 1 MG/ML 10 ML VIAL ONE (12:32)
[2018-06-15] MEDS ORDERED: MANNITOL 25% 12.5 GM/50 ML VIAL ONE (12:32)
[2018-06-15] MEDS ORDERED: HYDROmorphone (PF) 1 MG/ML ONE (12:32)
[2018-06-15] MEDS ORDERED: GLYCOPYRROLATE 0.2 MG/ML 2 ML VIAL ONE (12:32)
[2018-06-15] MEDS ORDERED: LABETALOL 5 MG/ML VIAL MDV ONE (12:32)
[2018-06-15] MEDS ORDERED: LIDOCAINE 1% INJ 10MG/ML (20 ML MDV) ONE (12:32)
[2018-06-15] MEDS ORDERED: PROPOFOL 10 MG/ML 20 ML VIAL IV ONE (12:32)
[2018-06-15] MEDS ORDERED: BUPIVACAINE-EPI 0.5%-1:200,000 10 ML VIAL SQ ONE ×2 (13:31)
[2018-06-15] MEDS ORDERED: SODIUM CHLORIDE 0.9% 1,000 ML IV ONE (14:39)
[2018-06-15] MEDS ORDERED: ONDANSETRON 4 MG/2 ML VIAL IVP PRN (14:45)
[2018-06-15] MEDS ORDERED: ACETAMINOPHEN TAB 500 MG TAB PO PRN (14:55)
[2018-06-15] MEDS: fentaNYL (PF) 50 MCG/ML 2 ML AMP IV PRN ×2 (15:40→16:18)
[2018-06-15] MEDS ORDERED: ONDANSETRON 4 MG/2 ML VIAL IVP ONE (16:12)
[2018-06-15] MEDS: KETOROLAC 30 MG/ML 1 ML VIAL IVP PRN ×2 (16:15→23:39)
[2018-06-15] MEDS: MANNITOL 25% 12.5 GM/50 ML VIAL IV SCH ×2 (18:14→18:16)
[2018-06-15] MEDS: DEXTROSE 5%-0.45% NACL 1,000 ML IV SCH (18:15)
[2018-06-15] MEDS ORDERED: LIDOCAINE 5% OINTMENT 50 GM JAR TOPICAL PRN (18:41)
[2018-06-15] MEDS ORDERED: ALBUTEROL NEBULIZED 2.5 MG/3 ML INHALATION PRN (18:41)
[2018-06-15] MEDS: traZODone HCL 50 MG TAB PO SCH (21:34)
[2018-06-15] MEDS: MONTELUKAST 10 MG TAB PO SCH (21:34)
[2018-06-15] MEDS: METHOCARBAMOL 500 MG TAB PO SCH (21:34)
[2018-06-15] MEDS: GABAPENTIN 400 MG CAP PO SCH (22:35)
[2018-06-16] MEDS: DEXTROSE 5%-0.45% NACL 1,000 ML IV SCH ×3 (01:27→20:52)
--- NOTE | 2018-06-16 06:10 | P.PN ---
Subjective Progress Note Date: 06/16/18 The patient is in her first day, status post robotic-assisted laparoscopic partial nephrectomy right by . She did well overnight. Her vital signs are stable. Her urine output is good. Her abdomen is soft. The wounds are closed. Patient. She will ambulate. I will discontinue the Esposito. We'll continue to monitor today. If she continues to do well she can go home tomorrow. Objective - Vital Signs Vital signs: Vital Signs Temp 97.7 F 06/16/18 05:56 Pulse 83 06/16/18 05:56 Resp 17 06/16/18 05:56 BP 141/61 06/16/18 05:56 Pulse Ox 98 06/16/18 05:56 Intake & Output 06/15/18 06/15/18 06/16/18 06:59 18:59 06:59 Intake Total 1400 Output Total 720 1000 Balance 680 -1000 Intake: IV 1400 Output: Urine 665 1000 Estimated Blood Loss 55 Other: Voiding Method Indwelling Catheter Indwelling Catheter
[2018-06-16] MEDS: GABAPENTIN 400 MG CAP PO SCH ×4 (06:16→20:43)
[2018-06-16] MEDS: KETOROLAC 30 MG/ML 1 ML VIAL IVP PRN ×2 (06:17→15:25)
[2018-06-16] MEDS: THYROID, PORK 30 MG TAB PO SCH (08:17)
[2018-06-16] MEDS: PANTOPRAZOLE 40 MG TABLET PO SCH (08:17)
[2018-06-16] MEDS: METHOCARBAMOL 500 MG TAB PO SCH ×3 (08:17→20:43)
[2018-06-16] MEDS: PYRIDOXINE 50 MG TAB PO SCH (08:17)
[2018-06-16] MEDS: FLUTICASONE 50MCG/SPRAY NASAL 16GM EA NOSTRIL SCH (08:18)
[2018-06-16] MEDS: Acetaminophen-Codeine 300-30mg TAB PO PRN ×2 (08:25→21:09)
[2018-06-16] MEDS ORDERED: ASPIRIN 81 MG PO SCH (09:00)
[2018-06-16 09:09] LABS: Basophils % (A) 0 %; Eosinophils # (A) 0.1 k/uL (0-0.7); Eosinophils % (A) 0 %; HCT 33.1 % (34.0-46.0); HGB 11.1 gm/dL (11.4-16.0); Lymphocytes # (A) 1.5 k/uL (1.0-4.8); Lymphocytes % (A) 12 %; MCH 32.3 pg (25.0-35.0); MCHC 33.4 g/dL (31.0-37.0); MCV 96.7 fL (80.0-100.0); Mean Platelet Volume 7.8; Monocytes # (A) 0.7 k/uL (0-1.0); Monocytes % (A) 6 %; Neutrophils # (A) 9.7 k/uL (1.3-7.7); Neutrophils % (A) 81 %; Platelet Count 188 k/uL (150-450); RBC 3.43 m/uL (3.80-5.40); RDW 13.1 % (11.5-15.5)
[2018-06-16 09:18] LABS: Albumin 3.7 g/dL (3.5-5.0); Calcium 9.2 mg/dL (8.4-10.2); Potassium 4.7 mmol/L (3.5-5.1); Total Bilirubin 0.4 mg/dL (0.2-1.3); Total Protein 6.5 g/dL (6.3-8.2)
[2018-06-16] MEDS: traZODone HCL 50 MG TAB PO SCH (20:43)
[2018-06-16] MEDS: MONTELUKAST 10 MG TAB PO SCH (20:43)
[2018-06-16] MEDS: ASPIRIN 81 MG PO SCH (20:44)
[2018-06-17] MEDS: KETOROLAC 30 MG/ML 1 ML VIAL IVP PRN ×3 (00:24→23:28)
[2018-06-17] MEDS: Acetaminophen-Codeine 300-30mg TAB PO PRN (05:17)
[2018-06-17] MEDS: GABAPENTIN 400 MG CAP PO SCH ×4 (05:17→23:27)
[2018-06-17] MEDS: DEXTROSE 5%-0.45% NACL 1,000 ML IV SCH (05:21)
[2018-06-17] MEDS: PANTOPRAZOLE 40 MG TABLET PO SCH (08:18)
[2018-06-17] MEDS: METHOCARBAMOL 500 MG TAB PO SCH ×3 (08:18→20:56)
[2018-06-17] MEDS: FLUTICASONE 50MCG/SPRAY NASAL 16GM EA NOSTRIL SCH (08:18)
[2018-06-17] MEDS: PYRIDOXINE 50 MG TAB PO SCH (08:19)
[2018-06-17] MEDS: THYROID, PORK 30 MG TAB PO SCH (08:19)
--- NOTE | 2018-06-17 09:37 | P.PN ---
Subjective Progress Note Date: 06/17/18 The patient is in her 2 nd post op day from a robotic partial nephrectomy Her Vital signs are stable She is voiding ok SHe is ambulating some She is toleratingf a regualr diet her wound looks good the drain was removed she doesnt feel she is ready to care for herseld today so she will be discharged home tomorrow. Pathology is pending Objective - Vital Signs Vital signs: Vital Signs Temp 98.4 F 06/17/18 07:53 Pulse 66 06/17/18 07:55 Resp 17 06/17/18 07:55 BP 152/73 06/17/18 07:53 Pulse Ox 93 L 06/17/18 07:53 Intake & Output 06/16/18 06/17/18 06/17/18 18:59 06:59 18:59 Output Total 565 50 Balance -565 -50 Output: Drainage 15 50 Right Abdomen 15 50 Urine 550 Uretheral (Esposito) 550 Other: Voiding Method Toilet Toilet # Voids 2 2 - Labs CBC & Chem 7: 06/16/18 08:38 06/16/18 08:38
--- NOTE | 2018-06-17 14:49 | P.OP ---
Date of Procedure: 06/15/18 Preoperative Diagnosis: right renal mass Postoperative Diagnosis: right renal mass Procedure(s) Performed: 1. robotic right partial nephrectomy 2. intra operative ultrasound examination of kidney and renal mass 3. interpretation of intra operative ultrasound of kidney and renal mass Implants: none Anesthesia: GETA Surgeon: Mar Nguyen Estimated Blood Loss (ml): 100 IV fluids (ml): 1,100 Urine output (ml): 300 Pathology: other (right renal mass) Condition: stable Disposition: PACU Indications for Procedure: right renal mass Operative Findings: Description of Procedure: Lana was found to have a right renal mass. She was recommended to undergo a robotic right partial nephrectomy. All risks and complications were explained to her including bleeding, urine leak, bowel and vascular injury, need for nephrectomy etc. She was taken to the OR, placed in lateral position and administered GA. Parts were prepared painted and draped. A veress needle was used to gain access to the periotneum and pneumo peritoneum was established to 20 mm Hg. Four 8 mm robotic ports were placed along the mid clavicular line, an care management assistant port at the umbilicus and a liver retraction port. The robot was docked. Using monopolar scissors and fenestrated bipolar forceps, an incision was made along the line of T[place]t and the ascending colon and duodenum were reflected off the kidney. The IVc was identified along its entire extent. The ureter was identified and reflected up with the 4th arm. The psoas muscle was identifed and a plane was created along the psoas muscle to the hilum. The 4th arm was used to retract the kidney upwards and the hilum was dissected to expose a single renal vein and 2 renal arteries. The fat was then reflected off the gerotas fascia starting inferiorly and progressing laterally. Care was taken to protect the ureter. The upper pole was then dissected and the fat was reflected off the upper pole. The kidney was reflected medially and the tumor was identified posteriorly at the upper pole of the kidney. The fat was completed dissected off the upper pole of the kidney and the entire kidney was relfected medially giving a good exposure of the tumor. The ultrasound was used to image the kidney and the tumor and the margins of the tumor were clearly marked for resection. 12.5 gms of mannitol were administered to the patient and bull dog clamps were used to clamp the renal arteries. Using monopolar scissors, the tumor was excised starting inferiorly and progressing superiorly. The incision was deepened to the collecting system which was opened. Care was taken no tto cut into the tumor. Once the tumor was completely cut, it was placed aside and renorrhaphy was stared. Using a needle sprinkling truck driver in the right hand and a bipolar in the left, the inner layer including the renal pelvis were closed with 3-0 v loc on a SH-1 needle. The inner defect was closed in 2 layers. Thereafter the outer layer of renorhhaphy was done using 2-[address]-1 needle. % separate sutures were used to create a pressure aproximation of the renal parenchyma using the sliding clip technique. the bull dog clamps were then removed and the defect was examined for bleeding. bleeding was noted from the middle of the defect and an additional v loc suture was used to close the defect and stop the bleeding. At the end, there was no bleeding from the defect. The bulldogs were removed and the tumor was placed in a endocatchbag. the warm ischemia time was 15 min. Tissel was placed over the defect and it was covered with surgicel. a 15 fr drain was placed through the 4th arm post and the instruments were removed. A fulll count was done and confirmed to be correct. The endocatch bag was removed through the care management assistant port and the incision was closed with a jaquelin-sommer needle. all ports were closed and the skin was closed with 4-0 monocryl Patient was taken to recovery in stable condition
[2018-06-17] MEDS: traZODone HCL 50 MG TAB PO SCH (20:56)
[2018-06-17] MEDS: ASPIRIN 81 MG PO SCH (20:57)
[2018-06-17] MEDS: MONTELUKAST 10 MG TAB PO SCH (20:57)
[2018-06-17 23:40] VITALS: RESP 20
[2018-06-18] MEDS: GABAPENTIN 400 MG CAP PO SCH (06:39)
[2018-06-18] MEDS: KETOROLAC 30 MG/ML 1 ML VIAL IVP PRN (06:42)
[2018-06-18 07:24] VITALS: BP 178/77; PULSE 76; TEMP 98.3
[2018-06-18] MEDS: FLUTICASONE 50MCG/SPRAY NASAL 16GM EA NOSTRIL SCH (09:03)
[2018-06-18] MEDS: METHOCARBAMOL 500 MG TAB PO SCH (09:04)
[2018-06-18] MEDS: PYRIDOXINE 50 MG TAB PO SCH (09:04)
[2018-06-18] MEDS: PANTOPRAZOLE 40 MG TABLET PO SCH (09:04)
--- NOTE | 2018-06-18 10:07 | P.DS ---
Providers Date of admission: 06/15/18 10:45 Expected date of discharge: 06/18/18 Attending physician: Mar Nguyen Primary care physician: Steven Gipson - Discharge Diagnosis(es) (1) Malignant neoplasm of right kidney Current Visit: Yes Status: Acute Hospital Course: On the day of admission, the patient underwent an uncomplicated right partial nephrectomy. The postoperative course was unremarkable. The DEJON drain was removed on the second postoperative day. At the time of discharge, the patient' s pain was well-controlled. She was tolerating diet and had a bowel movement. The incisions were clean and dry. Pathologically, the tumor was a 4.1 cm renal cell carcinoma with negative surgical margins. Procedures: Robotic-assisted right partial nephrectomy on 06/15/2018. Patient Condition at Discharge: Good Plan - Discharge Summary Discharge Rx Participant: Yes New Discharge Prescriptions: New Ketorolac [Toradol] 10 mg PO Q6HR PRN #12 tab PRN Reason: Moderate To Severe Pain No Action Thyroid,Pork [[place] Thyroid] 60 mg PO SUTUWEFRSA Gabapentin 800 mg PO Q6HR Omeprazole [PriLOSEC] 20 mg PO AC-BRKFST Lidocaine 5% Oint [Xylocaine 5% Oint] 1 applic TOPICAL Q6HR PRN PRN Reason: Pain Montelukast [Singulair] 10 mg PO HS Ibuprofen [Motrin] 800 mg PO TID Fluticasone Nasal [place] [Flonase Nasal [place]] 1 spray EA NOSTRIL DAILY Albuterol Inhaler [Ventolin Hfa Inhaler] 1 - 2 puff INHALATION RT-QID PRN PRN Reason: Shortness Of Breath traZODone HCL 150 mg PO HS Pyridoxine HCl (Vitamin B6) [Vitamin B-6] 100 mg PO DAILY Lidocaine Infusions 1 applicate IV DIRECTED Methocarbamol [Robaxin] 500 mg PO TID Acetaminophen-Codeine 300-30mg [Tylenol w/codeine #3] 1 tab PO BID PRN PRN Reason: Pain Acetaminophen [Tylenol Extra Strength] 1,000 mg PO DIRECTED PRN PRN Reason: Pain Aspirin [Adult Low Dose Aspirin EC] 81 mg PO DAILY Discharge Medication List Fluticasone Nasal [place] [Flonase Nasal [place]] 1 spray EA NOSTRIL DAILY 09/11/17 [History] Gabapentin 800 mg PO Q6HR 09/11/17 [History] Ibuprofen [Motrin] 800 mg PO TID 09/11/17 [History] Lidocaine 5% Oint [Xylocaine 5% Oint] 1 applic TOPICAL Q6HR PRN 09/11/17 [ History] Montelukast [Singulair] 10 mg PO HS 09/11/17 [History] Omeprazole [PriLOSEC] 20 mg PO AC-BRKFST 09/11/17 [History] Thyroid,Pork [[place] Thyroid] 60 mg PO SUTUWEFRSA 09/11/17 [History] Albuterol Inhaler [Ventolin Hfa Inhaler] 1 - 2 puff INHALATION RT-QID PRN [History] Pyridoxine HCl (Vitamin B6) [Vitamin B-6] 100 mg PO DAILY 10/01/17 [History] traZODone HCL 150 mg PO HS 10/01/17 [History] Lidocaine Infusions 1 applicate IV DIRECTED 12/25/17 [History] Methocarbamol [Robaxin] 500 mg PO TID 12/30/17 [History] Acetaminophen-Codeine 300-30mg [Tylenol w/codeine #3] 1 tab PO BID PRN 03/19/18 [History] Acetaminophen [Tylenol Extra Strength] 1,000 mg PO DIRECTED PRN 06/09/18 [ History] Aspirin [Adult Low Dose Aspirin EC] 81 mg PO DAILY 06/09/18 [History] Ketorolac [Toradol] 10 mg PO Q6HR PRN #12 tab 06/18/18 [Rx] Follow up Appointment(s)/Referral(s): [facility], [NON-STAFF] - As Needed Jorge Kendall MD [Family Provider] - 1 Week Activity/Diet/Wound Care/Special Instructions: Diet as tolerated. Okay to shower. No lifting, driving, or strenuous activity. Discharge Disposition: HOME SELF-CARE
== END 2018-06-18 12:04 | disposition home health service (06) | DRG 658 ==
LOC: 2ORMAIN 10:45 → 4MS4W 15:25
PROVIDERS: ADMIT Urology; ATTEND Urology
PROC: 8E0W4CZ Robotic Assisted Procedure of Trunk Region, Percutaneous Endoscopic Approach (ICD-10-PCS; 2018-06-15)
PROC: 0TB04ZZ Excision of Right Kidney, Percutaneous Endoscopic Approach (ICD-10-PCS; principal; 2018-06-15 12:30)
DX: C64.1 Malignant neoplasm of right kidney, except renal pelvis (principal); J45.909 Unspecified asthma, uncomplicated; M79.7 Fibromyalgia; K21.9 Gastro-esophageal reflux disease without esophagitis; Z85.3 Personal history of malignant neoplasm of breast; Z90.710 Acquired absence of both cervix and uterus; Z90.12 Acquired absence of left breast and nipple; Z87.891 Personal history of nicotine dependence; Z80.3 Family history of malignant neoplasm of breast; Z80.8 Family history of malignant neoplasm of other organs or systems; Z80.49 Family history of malignant neoplasm of other genital organs; Z79.82 Long term (current) use of aspirin; Z79.890 Hormone replacement therapy; Z79.899 Other long term (current) drug therapy; Z88.5 Allergy status to narcotic agent; Z88.8 Allergy status to other drugs, medicaments and biological substances; Z91.048 Other nonmedicinal substance allergy status; Z87.11 Personal history of peptic ulcer disease; Z98.82 Breast implant status
CPT/HCPCS: 80053; 85025; 86850; 86900; 86901; 88307

== ENCOUNTER → 2018-07-17 | Outpatient (CLI) | payer MEDICARE, BC | LOC: LABWHC1 09:37 | PROVIDERS: ATTEND Psychiatry & Neurology Pain Medicine | DX: Z01.818 Encounter for other preprocedural examination (principal) | CPT/HCPCS: 36415; 93005 ==

== ENCOUNTER → 2018-08-14 | Outpatient (CLI) | payer MEDICARE, BC ==
--- NOTE | 2018-08-14 09:36 | MM ---
Reason for exam: additional evaluation requested from prior study. Last mammogram was performed 10 months ago. History: Patient is postmenopausal, has history of breast cancer at age 72, and has history of other cancer at age 72. Family history of breast cancer in maternal grandmother and breast cancer in mother. Mastectomy of the left breast, December 2017. Malignant US breast localization LT, October 07, 2017. Lumpectomy of the left breast, October 07, 2017. Pre-pectoral saline implant in the right breast, 2004. Physical Findings: Nurse did not find any significant physical abnormalities on exam. MG Diag Mamm Implant RT w CAD CC, MLO, and ID view(s) were taken of the right breast. Prior study comparison: October 07, 2017, left breast MG diagnostic mammo LT wo CAD. August 12, 2017, bilateral MG 3d screen mammo imp/cad. There are scattered fibroglandular densities. Benign calcifications in the right breast. Retropectoral saline implant noted. These results were verbally communicated with the patient and result sheet given to the patient on 08/14/18. ASSESSMENT: Benign, BI-RAD 2 RECOMMENDATION: Follow-up diagnostic mammogram of the right breast in 1 year.
== END | disposition home or self-care (01) ==
LOC: RADMAMWWP 08:11
PROVIDERS: ATTEND Surgery
DX: Z08 Encounter for follow-up examination after completed treatment for malignant neoplasm (principal); Z85.3 Personal history of malignant neoplasm of breast
CPT/HCPCS: 77065

== ENCOUNTER → 2018-09-04 | Outpatient (CLI) | payer MEDICARE, BC ==
[2018-09-04 09:49] VITALS: BP 143/72; PULSE 71; RESP 18; TEMP 98.5; BMI 35.4
--- NOTE | 2018-09-04 10:21 | P.PN ---
Subjective Progress Note Date: 09/04/18 Principal diagnosis: Lana is a 73-year-old white female who is status post left breast mastectomy December 2017. The patient did not require any chemotherapy or radiation therapy. The lesion was done for pre-cancer. She had been noted to have a 5 mm circumscribed mass at 12:00 in the subareolar region of the left breast on screening mammogram performed in July 2017. Prior mammogram had been approximately 2 years prior. She had an ultrasound done which showed a small solid lesion and underwent a needle localization and excisional biopsy. This was initially read as intraductal papilloma with atypia and sent for consultation to [facility]. 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 The patient opted for a mastectomy. The patient is on an antiestrogen therapy as per Dr. Mccall from medical oncology. Of importance is also the fact that she underwent a total abdominal hysterectomy with bilateral salpingo-oophorectomy at the age of 55 and she was told that she had a suspicious lesion in the left ovary but it was contained to the ovary. The patient had a right breast mammogram performed on 1220 118. This revealed benign calcifications in the right breast as well as a retropectoral saline implants. Patient did not have left breast reconstruction. The patient has no complaints related to this surgery. It should be noted that the patient also underwent a right nephrectomy approximately 3 months ago. She did not require any chemotherapy for this. And is being followed conservatively. Family history: 1. Mother: Breast, ovarian cancer, melanoma 2. Maternal grandmother: Stomach cancer 3. Maternal great-grandmother: Breast cancer 4. Maternal aunt: Breast cancer 5. Maternal cousin breast cancer Hormonal history: Menarche: Approximately 16 Pregnancies: 5, 3 live births, 1 shortly after , breast fed: Yes First born at 19 Menopause: Surgical hysterectomy a 55 had not undergone menopause yet control pills: 5 years Hormones: Negative Past surgical history: 1. Tonsillectomy 2. Right foot 3. Hysterectomy a 55 4. Left mastectomy 5. Right nephrectomy 6. breast implants Medical history: 1. Fibromyalgia 2. Chronic mechanical lumbar pain syndrome 3. Acute sciatica 4. Chronic headaches 5. back pain Social History: smoke: 3 cigarettes/day for 8 years alcohol: none drugs: none Objective - Vital Signs Vital signs: Vital Signs Temp 98.5 F 09/04/18 09:41 Pulse 71 09/04/18 09:41 Resp 18 09/04/18 09:41 BP 143/72 09/04/18 09:41 Pulse Ox 98 09/04/18 09:41 Intake & Output 09/03/18 09/04/18 09/04/18 18:59 06:59 18:59 Weight 96.615 kg - Exam BMI 35.4 - Constitutional General appearance: Present: average body habitus, cooperative - EENT Eyes: Present: EOMI ENT: Present: hearing grossly normal - Neck Neck: Present: normal ROM - Respiratory Respiratory: bilateral: CTA - Cardiovascular Rhythm: regular Heart sounds: normal: S1, S2 - Gastrointestinal General gastrointestinal: Present: soft - Musculoskeletal Musculoskeletal: Present: gait normal - Psychiatric Psychiatric: Present: A&O x's 3, appropriate affect, intact judgment & insight - Additional findings Additional findings: Breast Exam: right breast: Multi-positional exam no dominant mass or nodule is of concern, well-healed scar from prior implant placement Right axilla: No adenopathy of concern Left chest wall: No evidence of any recurrent disease Left axilla: No adenopathy of concern Assessment and Plan Assessment: Impression: 1. Patient is status post left mastectomy for ductal carcinoma in situ no evidence of recurrent disease 2. Patient is status post right nephrectomy following with urology 3. Fibromyalgia 4. Back pain Plan: 1. Repeat evaluation here in 4 months time 2. Follow up with Dr. Mccall 3. Follow-up with Dr. Park urology 4. Medical management of medical conditions CC: Dr. Steven Gipson
== END | disposition home or self-care (01) ==
LOC: WWCWWP 09:12
PROVIDERS: ATTEND Surgery
DX: Z53.9 Procedure and treatment not carried out, unspecified reason (principal)

== ENCOUNTER → 2018-09-14 | Outpatient (CLI) | payer MEDICARE, BC ==
[2018-09-14 11:33] LABS: Albumin 4.3 g/dL (3.5-5.0); Calcium 9.2 mg/dL (8.4-10.2); Potassium 4.6 mmol/L (3.5-5.1); Total Bilirubin 0.4 mg/dL (0.2-1.3); Total Protein 7.3 g/dL (6.3-8.2)
--- NOTE | 2018-09-14 13:39 | CT ---
EXAMINATION TYPE: CT abdomen w con DATE OF EXAM: 09/14/2018 HISTORY: Part of kidney removed due to cancer CT DLP: 1442.3mGycm Automated Exposure Control for Dose Reduction was Utilized. CONTRAST: CT scan of the abdomen is performed with IV Contrast, patient injected with 80 mL of Isovue 300. COMPARISON: CT abdomen pelvis December 27, 2017 FINDINGS: LUNG BASES: There is partial visualization of right breast implant on current study. LIVER/GB: No significant abnormality is appreciated. PANCREAS: No significant abnormality is seen. SPLEEN: No significant abnormality is seen. ADRENALS: No significant abnormality is seen. KIDNEYS: Posterior medially upper pole level there is vague area of hypodensity with peripheral hyper density presumed successful surgical change at area of prior neoplasm. Cannot exclude some residual t umor as I would expect more volume loss or cortical scarring/defect but presence of peripheral rim li near hyperdensity is somewhat assuring . No new masses identified in either kidney. There is symmetri c cortical medullary uptake and excretion without hydronephrosis. BOWEL: Oral contrast does not reach colonic level. There is no suspicious small or large bowel dilata tion LYMPH NODES: No greater than 1cm abdominal lymph nodes are appreciated. OSSEOUS STRUCTURES: Underlying levoconvex scoliosis is redemonstrated centered in the upper lumbar sp ine. There is facet arthropathy in the lower lumbar spine. OTHER: No significant additional abnormality is seen. IMPRESSION: Suspected posttreatment change posterior aspect upper pole right kidney. This can be foll owed. No new suspicious mass or adenopathy identified.
--- NOTE | 2018-09-14 14:33 | XR ---
EXAMINATION TYPE: XR chest 2V DATE OF EXAM: 09/14/2018 COMPARISON: 12/27/2017 TECHNIQUE: PA and lateral views submitted. HISTORY: Renal cancer FINDINGS: The lungs are clear and there is no pneumothorax, pleural effusion, or focal pneumonia. Biapical pl eural thickening. Arthropathy of the shoulders. No overt failure. Curvature of the spine. Hypertrophi c and degenerative changes noted. IMPRESSION: 1. No acute process.
== END | disposition home or self-care (01) ==
LOC: RADCTMAIN 10:43
PROVIDERS: ATTEND Urology
DX: C64.1 Malignant neoplasm of right kidney, except renal pelvis (principal); Z88.8 Allergy status to other drugs, medicaments and biological substances; Z91.09 Other allergy status, other than to drugs and biological substances; Z91.048 Other nonmedicinal substance allergy status
CPT/HCPCS: 80053; 71046; 74160; 36415; Q9967

== ENCOUNTER → 2018-12-23 | Outpatient (CLI) | payer MEDICARE, BC ==
[~2018-12-23] MED LIST changes: -HYDROmorphone 0.5 MG/0.5 ML SYRINGE IVP PRN; +IODINE/POTASS IOD (LUGOLS) 14 ML BTL TOPICAL ONE; -LACTATED RINGERS 1,000 ML IV SCH; -LIDOCAINE 1% 20 ML VIAL (10MG/ML) FOR IV START INTRADERMA PRN; -MIDAZOLAM 2 MG/2 ML VIAL IV PRN; -ceFAZolin IN SWFI 2 GM/20 ML SYRINGE IVP ONE
--- NOTE | 2018-12-24 07:12 | NM ---
EXAMINATION TYPE: [place] DatScan Brain SPECT DATE OF EXAM: 12/23/2018 COMPARISON: NONE HISTORY: Tremors TECHNIQUE: 10 drops of Lugol's solution was administered 1 hour prior to injection as a thyroid bloc colleen agent. After the administration of 4.39 mCi I-123 Ioflupane DaTscan. Images obtained 3 hours p ost injection. SPECT images of the brain were acquired with axial and coronal reconstructions. FINDINGS: [place] brain dopamine transporter study: The DaTSCAN demonstrates normal uptake of tracer throughout the striata. There is no evidence of loss of the pre-synaptic dopaminergic terminals. IMPRESSION: This normal appearance is against a diagnosis of idiopathic PD or PS and is seen in healthy individua ls and also patients with ET and drug induced Parkinsonism.
== END | disposition home or self-care (01) ==
LOC: RADNMMAIN 10:45
PROVIDERS: ATTEND Psychiatry & Neurology Neurology
DX: G21.19 Other drug induced secondary parkinsonism (principal)
CPT/HCPCS: 78607; A9584

== ENCOUNTER 2018-12-29 07:32 | Inpatient (IN) | payer MEDICARE, BC ==
[2018-12-29] MEDS ORDERED: ASPIRIN 81 MG PO STA (07:58)
[2018-12-29] MEDS ORDERED: NITROGLYCERIN SL TABS 0.4 MG TAB SUBLINGUAL STA ×3 (07:58)
[2018-12-29] MEDS ORDERED: ONDANSETRON 4 MG/2 ML VIAL IVP STA (07:58)
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
[2018-12-29 08:14] LABS: Basophils % (A) 0 %; Eosinophils # (A) 0.2 k/uL (0-0.7); Eosinophils % (A) 3 %; HCT 35.1 % (34.0-46.0); HGB 11.8 gm/dL (11.4-16.0); Lymphocytes # (A) 1.9 k/uL (1.0-4.8); Lymphocytes % (A) 30 %; MCH 31.9 pg (25.0-35.0); MCHC 33.5 g/dL (31.0-37.0); MCV 95.3 fL (80.0-100.0); Mean Platelet Volume 8.1; Monocytes # (A) 0.2 k/uL (0-1.0); Monocytes % (A) 3 %; Neutrophils # (A) 3.9 k/uL (1.3-7.7); Neutrophils % (A) 61 %; Platelet Count 164 k/uL (150-450); RBC 3.68 m/uL (3.80-5.40); RDW 12.7 % (11.5-15.5); WBC 6.4 k/uL (3.8-10.6)
[2018-12-29 08:23] LABS: INR 0.9 (<1.2); Partial Thromboplastin Time 24.1 sec (22.0-30.0); Prothrombin Time 9.9 sec (9.0-12.0)
[2018-12-29 08:24] LABS: ALT 42 U/L (9-52); AST 37 U/L (14-36); Albumin 4.6 g/dL (3.5-5.0); Alkaline Phosphatase 70 U/L (38-126); Anion Gap 10 mmol/L; Blood Urea Nitrogen 14 mg/dL (7-17); Calcium 9.6 mg/dL (8.4-10.2); Carbon Dioxide 23 mmol/L (22-30); Chloride 108 mmol/L (98-107); Glucose 93 mg/dL (74-99); Magnesium 1.7 mg/dL (1.6-2.3); Potassium 3.9 mmol/L (3.5-5.1); Sodium 141 mmol/L (137-145); Total Bilirubin 0.5 mg/dL (0.2-1.3); Total Protein 7.4 g/dL (6.3-8.2)
[2018-12-29 08:46] LABS: Lipase >20000 U/L (23-300)
[2018-12-29 08:48] LABS: Amylase 1070 U/L (30-110)
--- NOTE | 2018-12-29 09:00 | XR ---
EXAMINATION TYPE: XR chest 2V DATE OF EXAM: 12/29/2018 COMPARISON: 09/14/2018 INDICATION: Chest pain TECHNIQUE: Frontal and lateral views of the chest are obtained. FINDINGS: The heart size is normal. The pulmonary vasculature is normal. The lungs are clear. IMPRESSION: 1. No acute pulmonary process.
[2018-12-29] MEDS ORDERED: HYDROmorphone 0.5 MG/0.5 ML SYRINGE IVP PRN (09:12)
[2018-12-29] MEDS ORDERED: NALOXONE 0.4 MG/ML 1 ML VIAL IV PRN (09:12)
[2018-12-29] MEDS ORDERED: HYDROmorphone 1 MG/ML 1 ML SYRINGE IVP STA (09:15)
[2018-12-29] MEDS: SODIUM CHLORIDE 0.9% 1,000 ML IV SCH ×2 (09:27→15:52)
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
[2018-12-29] MEDS: HYDROmorphone 1 MG/ML 1 ML SYRINGE IVP PRN ×3 (12:52→19:08)
[2018-12-29] MEDS: THYROID, PORK 30 MG TAB PO SCH (13:08)
[2018-12-29 13:28] VITALS: BMI 34.6
[2018-12-29] MEDS: ONDANSETRON 4 MG/2 ML VIAL IVP PRN ×2 (14:28→20:27)
--- NOTE | 2018-12-29 14:51 | US ---
EXAMINATION TYPE: US gallbladder DATE OF EXAM: 12/29/2018 COMPARISON: NONE CLINICAL HISTORY: Pancreatitis, evaluate pancreas and gallbladder. Epigastric pain, pancreatitis, par tial right nephrectomy renal cancer 06/11 EXAM MEASUREMENTS: Liver Length: 15.7 cm Gallbladder Wall: 0.3 cm CBD: 0.4 cm Right Kidney: 8.7 x 4.2 x 4.3 cm Technical limitations due to large amount of overlying bowel content Pancreas: Tail obscured by overlying bowel gas Liver: visualized portions appear wnl Gallbladder: no evidence of stones Evidence for sonographic Smith's sign: no CBD: appears wnl Right Kidney: no evidence of hydronephrosis IMPRESSION: 1. Pancreas is limited evaluation. The head and body the pancreas visualized appears within normal li mits. 2. Normal gallbladder
--- NOTE | 2018-12-29 14:57 | CT ---
EXAMINATION TYPE: CT ChestAbdPelvis w con DATE OF EXAM: 12/29/2018 COMPARISON: Abdomen 09/14/2018 HISTORY: 73-year-old female with abdominal pain, pancreatitis TECHNIQUE: Contiguous axial scanning of the chest, abdomen, and pelvis performed with IV Contrast, pa tient injected with 125 mL of Isovue 370. Delayed images through the kidneys were obtained. Coronal/s agittal reconstructions performed. CT DLP: 1690.2 mGycm Automated exposure control for dose reduction was used. FINDINGS: Chest: Patient is status post left mastectomy. Right breast prosthesis is present. Heart upper limits of normal in size. No pericardial effusion. Aorta normal caliber with bovine configuration to the aortic arch. No thoracic lymphadenopathy by CT size criteria. Evaluation of the lungs shows prominent strandy atelectasis or scarring at the lung bases. No consoli dation or pleural effusion. ABDOMEN: Tiny hiatal hernia. No focal liver lesion or biliary ductal dilatation. Portal venous system is patent. Gallbladder, adrenal glands, left kidney, and spleen appear within normal limits. Some volume loss and hypoenhancement upper pole of the right kidney may be perfusional variation. Cor relation can be made to exclude a small focus of pyelonephritis. Moderate peripancreatic edema tracking down the retroperitoneum and extending into the mid abdominal mesentery. Most of the inflammatory changes present along the pancreatic tail and proximal body. No p ancreatic or well-defined peripancreatic fluid collection. There is appropriate enhancement of the pancreatic parenchyma. No dilated small bowel or free air. No mesenteric or retroperitoneal lymphadenopathy. Mild atelectatic calcifications infrarenal abdominal aorta. Pelvis: Bladder partially distended. Left-sided pelvic phleboliths. Mild pelvic ascites likely reactive from the inflammatory process arising in the abdomen. No pelvic lymphadenopathy. Plans: Degenerative changes of the pubic symphysis. Mild degenerative changes at the hips. Facet arthropathy mid to lower lumbar spine. S-shaped scoliosis. Moderate degenerative disc disease mid thoracic spine . Facet arthropathy mid to lower lumbar spine. IMPRESSION: 1. ACUTE INTERSTITIAL EDEMATOUS PANCREATITIS WITH MODERATE INFLAMMATION AND EDEMA TRACKING DOWN THE R ETROPERITONEUM AND SOME EXTENDING INTO THE MESENTERY. NO WELL-FORMED FLUID COLLECTION OR EVIDENT COMP LICATION. 2. SOME FOCAL HYPOENHANCEMENT ALONG THE UPPER POLE OF THE RIGHT KIDNEY. CLINICALLY CORRELATE TO EXCLU DE A SMALL FOCUS OF PYELONEPHRITIS. SOME PERFUSION VARIATION IS THE ALTERNATIVE CONSIDERATION. 3. MILD PELVIC ASCITES LIKELY REACTIVE TO THE ACUTE PANCREATITIS.
[2018-12-29] MEDS ORDERED: TRIMETHOBENZAMIDE 300 MG CAP PO PRN (15:58)
[2018-12-29] MEDS: MONTELUKAST 10 MG TAB PO SCH (20:27)
[2018-12-29] MEDS: traZODone HCL 50 MG TAB PO SCH (20:27)
[2018-12-29] MEDS: TAMOXIFEN 10 MG TAB PO SCH (20:27)
[2018-12-30] MEDS: HYDROmorphone 1 MG/ML 1 ML SYRINGE IVP PRN ×4 (03:20→23:38)
[2018-12-30] MEDS: ONDANSETRON 4 MG/2 ML VIAL IVP PRN ×4 (03:20→23:35)
[2018-12-30] MEDS: SODIUM CHLORIDE 0.9% 1,000 ML IV SCH ×4 (04:42→23:37)
[2018-12-30] MEDS: PANTOPRAZOLE 40 MG/10 ML VIAL IV SCH (08:01)
[2018-12-30] MEDS: THYROID, PORK 30 MG TAB PO SCH (08:04)
[2018-12-30] MEDS: FLUTICASONE 50MCG/SPRAY NASAL 16GM EA NOSTRIL SCH (08:04)
[2018-12-30 10:17] LABS: Basophils % (A) 0 %; Eosinophils # (A) 0.1 k/uL (0-0.7); Eosinophils % (A) 1 %; HCT 32.1 % (34.0-46.0); Lymphocytes # (A) 1.4 k/uL (1.0-4.8); Lymphocytes % (A) 14 %; MCH 32.4 pg (25.0-35.0); MCHC 34.3 g/dL (31.0-37.0); MCV 94.6 fL (80.0-100.0); Monocytes # (A) 0.3 k/uL (0-1.0); Monocytes % (A) 3 %; Neutrophils # (A) 7.9 k/uL (1.3-7.7); Neutrophils % (A) 80 %; Platelet Count 154 k/uL (150-450); RBC 3.39 m/uL (3.80-5.40); RDW 13.4 % (11.5-15.5); WBC 9.8 k/uL (3.8-10.6)
[2018-12-30] MEDS ORDERED: KETOROLAC 30 MG/ML 1 ML VIAL IVP ONE (10:18)
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
[2018-12-30] MEDS ORDERED: PROCHLORPERAZINE SUPPOSITORY 25 MG SUPP RECTAL PRN (10:22)
--- NOTE | 2018-12-30 10:56 | P.PN ---
Subjective Patient resting in bed continues to complain of diffuse abdominal pain and migraine. Continues with consultation with gastroenterology Objective - Vital Signs Vital signs: Vital Signs Temp 97.9 F 12/30/18 05:00 Pulse 66 12/30/18 08:00 Resp 16 12/30/18 08:00 BP 135/67 12/30/18 05:00 Pulse Ox 98 12/30/18 05:00 Intake & Output 12/29/18 12/30/18 12/30/18 18:59 06:59 18:59 Intake Total 1000 Balance 1000 Weight 94.347 kg Intake: Intake, IV Titration 500 Amount Sodium Chloride 0.9% 1, 500 000 ml @ 125 mls/hr IV . Q8H [facility] Rx#:[id number] Oral 500 Other: Voiding Method Toilet Toilet Toilet # Voids 3 1 1 - Constitutional General appearance: Present: mild distress, obese - EENT Eyes: Present: PERRLA Ears: bilateral: normal - Neck Neck: Present: normal ROM - Respiratory Respiratory: bilateral: CTA - Cardiovascular Rhythm: regular - Gastrointestinal General gastrointestinal: Present: decreased bowel sounds, soft Localized gastrointestinal: tender: diffuse - Integumentary Integumentary: Present: normal - Neurologic Neurologic: Present: CNII-XII intact - Musculoskeletal Musculoskeletal: Present: generalized weakness - Psychiatric Psychiatric: Present: A&O x's 3, appropriate affect, intact judgment & insight - Labs CBC & Chem 7: 12/30/18 09:25 12/29/18 08:00 Labs: Abnormal Lab Results - Last 24 Hours (Table) 12/30/18 Range/Units 09:25 RBC 3.39 L (3.80-5.40) m/uL Hgb 11.0 L (11.4-16.0) gm/dL Hct 32.1 L (34.0-46.0) % Neutrophils # 7.9 H (1.3-7.7) k/uL - Imaging and Cardiology CT scan - abdomen: report reviewed Assessment and Plan Plan: Assessment Acute pancreatitis without infection and necrosis History of degenerative disc disease Migraines fibromyalgia GERD Hypothyroidism Plan Continue consultation with gastroenterology
[2018-12-30 13:43] LABS: ALT 68 U/L (9-52); AST 47 U/L (14-36); Albumin 3.9 g/dL (3.5-5.0); Alkaline Phosphatase 63 U/L (38-126); Anion Gap 9 mmol/L; Blood Urea Nitrogen 12 mg/dL (7-17); Calcium 8.9 mg/dL (8.4-10.2); Carbon Dioxide 20 mmol/L (22-30); Chloride 113 mmol/L (98-107); Glucose 96 mg/dL (74-99); LDH 418 U/L (313-618); Potassium 3.9 mmol/L (3.5-5.1); Sodium 142 mmol/L (137-145); Total Bilirubin 0.5 mg/dL (0.2-1.3); Total Protein 6.5 g/dL (6.3-8.2)
[2018-12-30 13:50] LABS: Amylase 898 U/L (30-110); Lipase 4435 U/L (23-300)
[2018-12-30] MEDS: traZODone HCL 50 MG TAB PO SCH (21:21)
[2018-12-30] MEDS: TAMOXIFEN 10 MG TAB PO SCH (21:21)
[2018-12-30] MEDS: MONTELUKAST 10 MG TAB PO SCH (21:21)
[2018-12-31] MEDS: ALBUTEROL NEBULIZED 2.5 MG/3 ML INHALATION PRN ×2 (05:32→14:55)
[2018-12-31] MEDS: ONDANSETRON 4 MG/2 ML VIAL IVP PRN ×2 (05:55→17:33)
[2018-12-31] MEDS: HYDROmorphone 1 MG/ML 1 ML SYRINGE IVP PRN ×2 (05:55→17:34)
[2018-12-31] MEDS: FLUTICASONE 50MCG/SPRAY NASAL 16GM EA NOSTRIL SCH (08:38)
[2018-12-31] MEDS: PANTOPRAZOLE 40 MG/10 ML VIAL IV SCH (08:40)
[2018-12-31] MEDS: SODIUM CHLORIDE 0.9% 1,000 ML IV SCH ×2 (08:41→19:12)
[2018-12-31 09:09] LABS: ALT 52 U/L (9-52); AST 41 U/L (14-36); Albumin 3.5 g/dL (3.5-5.0); Alkaline Phosphatase 56 U/L (38-126); Anion Gap 9 mmol/L; Blood Urea Nitrogen 10 mg/dL (7-17); Calcium 8.2 mg/dL (8.4-10.2); Carbon Dioxide 20 mmol/L (22-30); Chloride 114 mmol/L (98-107); Glucose 87 mg/dL (74-99); Lipase 664 U/L (23-300); Potassium 3.5 mmol/L (3.5-5.1); Sodium 143 mmol/L (137-145); Total Bilirubin 0.8 mg/dL (0.2-1.3)
[2018-12-31 09:19] LABS: Basophils % (A) 0 %; Eosinophils # (A) 0.1 k/uL (0-0.7); Eosinophils % (A) 1 %; HGB 10.1 gm/dL (11.4-16.0); Lymphocytes # (A) 1.2 k/uL (1.0-4.8); Lymphocytes % (A) 14 %; MCH 32.4 pg (25.0-35.0); MCHC 33.8 g/dL (31.0-37.0); MCV 95.9 fL (80.0-100.0); Mean Platelet Volume 8.8; Monocytes # (A) 0.4 k/uL (0-1.0); Monocytes % (A) 4 %; Neutrophils # (A) 6.9 k/uL (1.3-7.7); Neutrophils % (A) 80 %; Platelet Count 124 k/uL (150-450); RBC 3.13 m/uL (3.80-5.40); RDW 13.3 % (11.5-15.5); WBC 8.6 k/uL (3.8-10.6)
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
[2018-12-31 11:13] LABS: IgG Subclass 3 27.5 mg/dL (11.0-85.0); IgG Subclass 4 55.4 mg/dL (3.0-175.0)
--- NOTE | 2018-12-31 11:50 | P.PN ---
Subjective Patient improving lipase down to 664 patient states abdominal pain improving discuss case with gastroenterology they've avoided advance diet. Hopeful discharge soon if continues to progress Objective - Vital Signs Vital signs: Vital Signs Temp 98.1 F 12/31/18 11:39 Pulse 59 L 12/31/18 11:39 Resp 18 12/31/18 11:39 BP 143/74 12/31/18 11:39 Pulse Ox 97 12/31/18 11:39 Intake & Output 12/30/18 12/31/18 12/31/18 18:59 06:59 18:59 Intake Total 1000 1720 Balance 1000 1720 Intake: Intake, IV Titration 1000 1500 Amount Sodium Chloride 0.9% 1, 1000 1500 000 ml @ 125 mls/hr IV . Q8H [facility] Rx#:[id number] Oral 220 Other: Voiding Method Toilet Toilet Toilet # Voids 1 2 2 - Constitutional General appearance: Present: mild distress, obese - EENT Eyes: Present: PERRLA Ears: bilateral: normal - Neck Neck: Present: normal ROM - Respiratory Respiratory: bilateral: CTA - Cardiovascular Rhythm: regular Abnormal Heart Sounds: Present: systolic murmur - Gastrointestinal General gastrointestinal: Present: decreased bowel sounds, soft - Integumentary Integumentary: Present: normal - Neurologic Neurologic: Present: CNII-XII intact - Musculoskeletal Musculoskeletal: Present: generalized weakness - Psychiatric Psychiatric: Present: A&O x's 3, appropriate affect, intact judgment & insight - Labs CBC & Chem 7: 12/31/18 07:53 12/31/18 07:53 Labs: Abnormal Lab Results - Last 24 Hours (Table) 12/30/18 12/31/18 12/31/18 Range/Units 09:25 07:53 07:53 RBC 3.13 L (3.80-5.40) m/uL Hgb 10.1 L (11.4-16.0) gm/dL Hct 30.0 L (34.0-46.0) % Plt Count 124 L (150-450) k/uL Chloride 113 H 114 H (98-107) mmol/L Carbon Dioxide 20 L 20 L (22-30) mmol/L Calcium 8.2 L (8.4-10.2) mg/dL AST 47 H 41 H (14-36) U/L ALT 68 H (9-52) U/L Total Protein 6.0 L (6.3-8.2) g/dL Amylase 898 H* (30-110) U/L Lipase 4435 H 664 H (23-300) U/L Assessment and Plan Plan: Assessment Acute pancreatitis unknown etiology History of migraines Degenerative disc disease Fibromyalgia GERD Hypothyroidism Plan Advance diet low-fat Continue consultation with gastroenterology
[2018-12-31] MEDS: traZODone HCL 50 MG TAB PO SCH (21:31)
[2018-12-31] MEDS: MONTELUKAST 10 MG TAB PO SCH (21:31)
[2018-12-31] MEDS: TAMOXIFEN 10 MG TAB PO SCH (21:31)
[2019-01-01] MEDS: SODIUM CHLORIDE 0.9% 1,000 ML IV SCH ×3 (01:44→20:36)
[2019-01-01] MEDS: ONDANSETRON 4 MG/2 ML VIAL IVP PRN ×4 (03:06→20:36)
[2019-01-01] MEDS: HYDROmorphone 1 MG/ML 1 ML SYRINGE IVP PRN ×2 (03:08→09:16)
[2019-01-01] MEDS: PANTOPRAZOLE 40 MG/10 ML VIAL IV SCH (09:16)
[2019-01-01] MEDS: FLUTICASONE 50MCG/SPRAY NASAL 16GM EA NOSTRIL SCH (09:17)
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
[2019-01-01 13:39] LABS: Amylase 90 U/L (30-110); Lipase 233 U/L (23-300)
[2019-01-01] MEDS: THYROID, PORK 30 MG TAB PO SCH (14:34)
--- NOTE | 2019-01-01 14:41 | P.PN ---
Subjective 73-year-old female presented emergency room with complaints of severe mid abdominal pain radiates to her chest. Found to have lipase greater than 20,000 amylase 1070 over enzymes are negative. Patient states that she is had intermittent diarrhea and nausea for about a month pain came on suddenly developed. Patient does have a history of GERD hypothyroidism degenerative disc disease and fibromyalgia On 01/01/2019 Patient still says that she's having pain in the epigastric area which is better with pain medications She is tolerating clear liquids She has no nausea and vomiting. Objective - Vital Signs Vital signs: Vital Signs Temp 98.0 F 01/01/19 12:02 Pulse 64 01/01/19 12:02 Resp 16 01/01/19 12:02 BP 136/66 01/01/19 12:02 Pulse Ox 96 01/01/19 12:02 Intake & Output 12/31/18 01/01/19 01/01/19 18:59 06:59 18:59 Intake Total 1000 2720 Balance 1000 2720 Weight 94.347 kg Intake: Intake, IV Titration 1000 1500 Amount Sodium Chloride 0.9% 1, 1000 1500 000 ml @ 125 mls/hr IV . Q8H [facility] Rx#:[id number] Oral 1220 Other: Voiding Method Toilet Toilet # Voids 2 4 - Exam On exam, alert and oriented x3. HEENT: Conjunctivae normal. eyes normal. NECK: No JVD. No thyroid enlargement. No LNs CARDIOVASCULAR: S1-S2 positive RESPIRATION: Breath sounds are equally both sides. No rhonchi or rales and wheezing ABDOMEN: Soft, tenderness in the epigastric area. No guarding. no masses palpable. Bowel sounds heard LEGS: No edema. no swelling NERVOUS SYSTEM: Cranial N 2-12 grossly normal. Moves all 4 limbs. No focal def icits. No sensory deficit. No signs of cerebellar dysfucntion. Skin: no ulcer no rash - Labs CBC & Chem 7: 12/31/18 07:53 12/31/18 07:53 Assessment and Plan Assessment: Abdominal pain acute pancreatitis History of degenerative disc disease Fibromyalgia GERD Hypothyroidism Plan - Continue pain control - Diet recommendations as per GI - Continue IV fluids - Monitor lipase levels - We will follow the patient
[2019-01-01] MEDS: KETOROLAC 30 MG/ML 1 ML VIAL IVP PRN ×2 (14:46→20:35)
[2019-01-01] MEDS: TAMOXIFEN 10 MG TAB PO SCH (20:36)
[2019-01-01] MEDS: traZODone HCL 50 MG TAB PO SCH (20:36)
[2019-01-01] MEDS: MONTELUKAST 10 MG TAB PO SCH (20:36)
[2019-01-01] MEDS: ALBUTEROL NEBULIZED 2.5 MG/3 ML INHALATION PRN (20:55)
[2019-01-02] MEDS: KETOROLAC 30 MG/ML 1 ML VIAL IVP PRN ×4 (02:44→20:33)
[2019-01-02] MEDS: ONDANSETRON 4 MG/2 ML VIAL IVP PRN ×4 (02:45→20:34)
[2019-01-02] MEDS: SODIUM CHLORIDE 0.9% 1,000 ML IV SCH ×3 (02:46→20:35)
[2019-01-02] MEDS: ALBUTEROL NEBULIZED 2.5 MG/3 ML INHALATION PRN (05:08)
[2019-01-02 07:46] LABS: Basophils % (A) 0 %; Eosinophils # (A) 0.1 k/uL (0-0.7); Eosinophils % (A) 2 %; HCT 28.2 % (34.0-46.0); HGB 9.4 gm/dL (11.4-16.0); Lymphocytes # (A) 1.2 k/uL (1.0-4.8); Lymphocytes % (A) 17 %; MCH 31.9 pg (25.0-35.0); MCHC 33.2 g/dL (31.0-37.0); MCV 96.3 fL (80.0-100.0); Monocytes # (A) 0.3 k/uL (0-1.0); Monocytes % (A) 5 %; Neutrophils # (A) 5.1 k/uL (1.3-7.7); Neutrophils % (A) 75 %; Platelet Count 148 k/uL (150-450); RBC 2.93 m/uL (3.80-5.40); RDW 13.8 % (11.5-15.5); WBC 6.7 k/uL (3.8-10.6)
[2019-01-02 07:57] LABS: Anion Gap 10 mmol/L; Blood Urea Nitrogen 8 mg/dL (7-17); Calcium 8.4 mg/dL (8.4-10.2); Carbon Dioxide 19 mmol/L (22-30); Chloride 116 mmol/L (98-107); Glucose 110 mg/dL (74-99); Lipase 151 U/L (23-300); Sodium 145 mmol/L (137-145)
[2019-01-02] MEDS: THYROID, PORK 30 MG TAB PO SCH (09:06)
[2019-01-02] MEDS: FLUTICASONE 50MCG/SPRAY NASAL 16GM EA NOSTRIL SCH (09:06)
[2019-01-02] MEDS: PANTOPRAZOLE 40 MG TABLET PO SCH (09:06)
--- NOTE | 2019-01-02 13:34 | PN ---
PROGRESS NOTE DATE OF SERVICE: 01/02/2019 Patient is a 73-year-old pleasant white female admitted to the hospital with acute pancreatitis. She presents to the hospital with severe epigastric pain associated with nausea, vomiting of 2 days duration. Was noted to have elevated amylase and lipase consistent with acute pancreatitis. She is feeling much better. She still has some epigastric discomfort and some tightness in the lower sternal area. She got some breathing treatments this morning with no help. She denies any cough. No fever or chills. She never had these symptoms in the past. PHYSICAL EXAMINATION: On physical examination, she appears comfortable, in no apparent distress. Vital signs are stable. Blood pressure is 158/61, pulse rate 56, temperature 98.1. HEENT examination unremarkable. Conjunctivae pink. Sclerae anicteric. Oral cavity no lesions. NECK: No JVD or lymph node enlargement. Chest was clear to auscultation. HEART: Regular rate and rhythm. ABDOMEN: Soft. There was tenderness in the epigastric area. Rest of the abdomen was benign. EXTREMITIES: No pedal edema. SKIN: No rashes. NEURO: Alert and oriented x3. No focal deficits. LABS: Labs from today, WBC 6.7, hemoglobin 9.4, platelets 148. Basic metabolic panel is within normal limits. Lipase is 151. Serum fasting triglycerides 132. IgG4 levels are 55.4. CT of the abdomen showed changes in the pancreas consistent with acute pancreatitis. Ultrasound of the gallbladder was negative for any gallstones. IMPRESSION: Acute pancreatitis, first episode, gradually improving. Lipase has normalized. She still has some epigastric discomfort which also has been improving gradually. Workup so far for acute pancreatitis is all negative. Etiology remains unclear. No history of alcohol use and results of the gallbladder did not show any evidence of gallstones. RECOMMENDATIONS: 1. Advance diet as tolerated. 2. Continue with symptomatic and supportive care with pain medications as needed as well as antiemetics. 3. Once the symptoms improve, she can be discharged home with an outpatient follow up in 1 to 2 weeks for further workup of acute pancreatitis including endoscopic ultrasound of the pancreas. Thank you for this consultation. MMODL / IJN: [id number] /
--- NOTE | 2019-01-02 15:59 | P.DS ---
Providers Date of admission: 12/29/18 09:13 Expected date of discharge: 01/02/19 Attending physician: Steven Gipson Consults: 12/29/18 09:13 Consult Physician Urgent Consulting Provider: Gale Cortes Consult Reason/Comments: Acute pancreatitis Do you want consulting provider notified?: Yes Primary care physician: Steven Gipson Hospital Course: Discharge diagnosis Abdominal pain acute pancreatitis History of degenerative disc disease Fibromyalgia GERD Hypothyroidism Hospital course 73-year-old female presented emergency room with complaints of severe mid abdominal pain radiates to her chest. Found to have lipase greater than 20,000 amylase 1070 over enzymes are negative. Patient states that she is had intermittent diarrhea and nausea for about a month pain came on suddenly developed. Patient does have a history of GERD hypothyroidism degenerative disc disease and fibromyalgia Patient was improving slowly and pain was controlled on pain medications. She was slowly started on clear liquid diet and advanced to regular diet. GI was following the patient appreciate the recommendations On 01/02/2019 The patient says that she has no more pain and is tolerating regular food She said that she Toradol in the morning and nothing after that No nausea and vomiting On exam, alert and oriented x3. HEENT: Conjunctivae normal. eyes normal. NECK: No JVD. No thyroid enlargement. No LNs CARDIOVASCULAR: S1-S2 positive RESPIRATION: Breath sounds are equally both sides. No rhonchi or rales and wheezing ABDOMEN: Soft, nontender epigastric area. No guarding. no masses palpable. Bowel sounds heard LEGS: No edema. no swelling NERVOUS SYSTEM: Cranial N 2-12 grossly normal. Moves all 4 limbs. No focal deficits. No sensory deficit. No signs of cerebellar dysfucntion. Skin: no ulcer no rash Patient can be discharged if continues to tolerate the regular food She will be discharged on Toradol, Zofran and omeprazole She is to follow with Dr. Meléndez at the date indicated below Patient Condition at Discharge: Fair Plan - Discharge Summary Discharge Rx Participant: No New Discharge Prescriptions: New Ketorolac [Toradol] 10 mg PO Q6HR #30 tab Ondansetron Odt [Zofran Odt] 4 mg PO Q8HR PRN #30 tab PRN Reason: Nausea And Vomiting Continue Thyroid,Pork [[place] Thyroid] 60 mg PO SUTUWEFRSA Lidocaine 5% Oint [Xylocaine 5% Oint] 1 applic TOPICAL Q6HR PRN PRN Reason: Pain Montelukast [Singulair] 10 mg PO HS Fluticasone Nasal Henderson [Flonase Nasal Henderson] 1 spray EA NOSTRIL DAILY Albuterol Inhaler [Ventolin Hfa Inhaler] 1 - 2 puff INHALATION RT-QID PRN PRN Reason: Shortness Of Breath traZODone HCL 150 mg PO HS Pyridoxine HCl (Vitamin B6) [Vitamin B-6] 100 mg PO DAILY Methocarbamol [Robaxin] 500 mg PO TID Acetaminophen-Codeine 300-30mg [Tylenol w/codeine #3] 1 tab PO BID PRN PRN Reason: Pain Acetaminophen [Tylenol Extra Strength] 1,000 mg PO DIRECTED PRN PRN Reason: Pain Aspirin [Adult Low Dose Aspirin EC] 81 mg PO HS Multivitamin [Multivitamins Adult Gummies] 1 tab PO DAILY Tamoxifen Citrate 20 mg PO HS Omeprazole [PriLOSEC] 20 mg PO AC-BRKFST #30 capsule.dr Discontinued Ibuprofen [Motrin] 800 mg PO TID Discharge Medication List Fluticasone Nasal Henderson [Flonase Nasal Henderson] 1 spray EA NOSTRIL DAILY 09/11/17 [History] Lidocaine 5% Oint [Xylocaine 5% Oint] 1 applic TOPICAL Q6HR PRN 09/11/17 [History] Montelukast [Singulair] 10 mg PO HS 09/11/17 [History] Thyroid,Pork [[place] Thyroid] 60 mg PO SUTUWEFRSA 09/11/17 [History] Albuterol Inhaler [Ventolin Hfa Inhaler] 1 - 2 puff INHALATION RT-QID PRN 09/17/17 [History] Pyridoxine HCl (Vitamin B6) [Vitamin B-6] 100 mg PO DAILY 10/01/17 [History] traZODone HCL 150 mg PO HS 10/01/17 [History] Methocarbamol [Robaxin] 500 mg PO TID 12/30/17 [History] Acetaminophen-Codeine 300-30mg [Tylenol w/codeine #3] 1 tab PO BID PRN 03/19/18 [History] Acetaminophen [Tylenol Extra Strength] 1,000 mg PO DIRECTED PRN 06/09/18 [His tory] Aspirin [Adult Low Dose Aspirin EC] 81 mg PO HS 06/09/18 [History] Multivitamin [Multivitamins Adult Gummies] 1 tab PO DAILY 09/04/18 [History] Tamoxifen Citrate 20 mg PO HS 12/29/18 [History] Ketorolac [Toradol] 10 mg PO Q6HR #30 tab 01/02/19 [Rx] Omeprazole [PriLOSEC] 20 mg PO AC-BRKFST #30 capsule. 01/02/19 [Rx] Ondansetron Odt [Zofran Odt] 4 mg PO Q8HR PRN #30 tab 01/02/19 [Rx] Follow up Appointment(s)/Referral(s): Steven Gipson MD [Primary Care Provider] - 1-2 days Frank Reyes MD [STAFF PHYSICIAN] - 01/25/19 8:45 am Discharge Disposition: HOME SELF-CARE
[2019-01-02] MEDS: TAMOXIFEN 10 MG TAB PO SCH (20:35)
[2019-01-02] MEDS: MONTELUKAST 10 MG TAB PO SCH (20:35)
[2019-01-02] MEDS: traZODone HCL 50 MG TAB PO SCH (20:35)
[2019-01-02 21:04] VITALS: RESP 18
[2019-01-03] MEDS: SODIUM CHLORIDE 0.9% 1,000 ML IV SCH (01:06)
[2019-01-03] MEDS: KETOROLAC 30 MG/ML 1 ML VIAL IVP PRN ×3 (02:54→14:25)
[2019-01-03] MEDS: ONDANSETRON 4 MG/2 ML VIAL IVP PRN ×3 (02:54→14:25)
[2019-01-03] MEDS: FLUTICASONE 50MCG/SPRAY NASAL 16GM EA NOSTRIL SCH (09:11)
[2019-01-03] MEDS: THYROID, PORK 30 MG TAB PO SCH (09:12)
[2019-01-03] MEDS: PANTOPRAZOLE 40 MG TABLET PO SCH (09:12)
--- NOTE | 2019-01-03 12:06 | PN ---
PROGRESS NOTE DATE OF SERVICE: January 03, 2019 Patient is a 73-year-old pleasant white female admitted to hospital with acute pancreatitis. She is doing much better. She was having some epigastric pain yesterday but this morning feels much better on a soft diet, tolerating well. She denies any nausea, vomiting. She wants to go home. PHYSICAL EXAMINATION: Appears comfortable in no apparent distress. Vital signs is stable. Blood pressure is 101/80 4/77, pulse rate 63, temperature 97.7. HEENT examination unremarkable. Conjunctivae pink. Sclerae anicteric. Oral cavity no lesions. NECK: No JVD or lymph node enlargement. CHEST: Clear to auscultation. HEART: Regular rate and rhythm. ABDOMEN: Soft. Bowel sounds are positive. No organomegaly. EXTREMITIES: No pedal edema. SKIN: No rashes. NEUROLOGIC: Alert and oriented x3. No focal deficits. LABS: From yesterday is normal lipase. CBC with differential count is normal. Hemoglobin was 9.4. IMPRESSION: Acute pancreatitis, first episode. Patient doing much better. Abdominal pain has resolved. Etiology remains unclear. So far all the workup has been negative. RECOMMENDATION: Discharge home today with outpatient follow up in 2 weeks. Thank you for this consultation. MMODL / IJN: [id number] /
[2019-01-03 14:03] VITALS: BP 192/63; PULSE 51; TEMP 99.5
== END 2019-01-03 14:45 | disposition home or self-care (01) | DRG 440 ==
LOC: EC 07:32 → 3NMEDONC 09:13
PROVIDERS: ADMIT Family Medicine; ATTEND Family Medicine
DX: K85.90 Acute pancreatitis without necrosis or infection, unspecified (principal); E03.9 Hypothyroidism, unspecified; G43.909 Migraine, unspecified, not intractable, without status migrainosus; K21.9 Gastro-esophageal reflux disease without esophagitis; M79.7 Fibromyalgia; Z79.82 Long term (current) use of aspirin; Z79.899 Other long term (current) drug therapy; Z80.8 Family history of malignant neoplasm of other organs or systems; Z85.528 Personal history of other malignant neoplasm of kidney; Z87.891 Personal history of nicotine dependence; Z90.12 Acquired absence of left breast and nipple; Z90.5 Acquired absence of kidney; Z90.710 Acquired absence of both cervix and uterus; Z98.82 Breast implant status; M41.9 Scoliosis, unspecified; G89.29 Other chronic pain; M46.1 Sacroiliitis, not elsewhere classified; Z90.10 Acquired absence of unspecified breast and nipple; M51.36 Other intervertebral disc degeneration, lumbar region; Z85.3 Personal history of malignant neoplasm of breast; Z88.8 Allergy status to other drugs, medicaments and biological substances
CPT/HCPCS: 36415; 71046; 71260; 74177; 76705; 80048; 80053; 82150; 82787; 83615; 83690; 83735; 84478; 84484; 85025; 85610; 85730; 86038; 86301; 93005; 94640; 94760; 96374; 96375; 99285

== ENCOUNTER → 2019-02-04 | Outpatient (CLI) | payer MEDICARE, BC ==
[2019-02-04 13:47] VITALS: BP 132/90; PULSE 82; RESP 16; TEMP 99.5; BMI 32.4
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
== END | disposition home or self-care (01) ==
LOC: WWCWWP 13:30
PROVIDERS: ATTEND Surgery
DX: Z53.9 Procedure and treatment not carried out, unspecified reason (principal)

== ENCOUNTER → 2019-02-13 | Outpatient (CLI) | payer MEDICARE, BC ==
--- NOTE | 2019-02-13 18:14 | MR ---
EXAMINATION TYPE: MR abdomen wo/w con DATE OF EXAM: 02/13/2019 COMPARISON: CT scan 12/29/2018 HISTORY: Acute pancreatitis without necrosis CONTRAST: Standard multiplanar, multisequence MRI departmental protocol utilizing 8.5 mL intravenous Gadavist g adolinium contrast. FINDINGS: Liver has normal size and contour. Bile ducts are not dilated. Gallbladder appears normal. Heart is enlarged. There is no pleural effusion. Spleen appears normal. Pancreatic duct appears normal. There is no evidence of pancreatic mass. There is no evidence of pseu docyst. There is no adrenal mass. Kidneys have normal size. There is some cortical thinning on the posterior medial right kidney with decreased signal on the T2 and T1 images that could relate to scarring. Ther e is no hydronephrosis. There is mild lumbar levoscoliosis. There is mild thoracic dextroscoliosis. T here is no pathologic enhancement. IMPRESSION: No evidence of pancreatitis. There is clearing of the retroperitoneal fluid compared to old CT scan o f 12/29/2018. Mild cortical scarring in the posterior right kidney. This could relate to chronic pyelon ephritis or old infarct and unchanged compared to last CT scan.
== END | disposition home or self-care (01) ==
LOC: RADMRIMAIN 11:35
PROVIDERS: ATTEND Internal Medicine
DX: N28.9 Disorder of kidney and ureter, unspecified (principal); K85.90 Acute pancreatitis without necrosis or infection, unspecified
CPT/HCPCS: 74183; A9585

== ENCOUNTER → 2019-03-01 | Outpatient (CLI) | payer MEDICARE, BC ==
--- NOTE | 2019-03-01 11:15 | MM ---
Reason for exam: additional evaluation requested from prior study. Last mammogram was performed 7 months ago. History: Patient is postmenopausal, has history of breast cancer at age 72, and has history of other cancer at age 72. Family history of breast cancer in maternal grandmother and breast cancer in mother. Mastectomy of the left breast, December 2017. Malignant US breast localization LT, October 07, 2017. Lumpectomy of the left breast, October 07, 2017. Pre-pectoral saline implant in the right breast, 2004. Physical Findings: Nurse did not find any significant physical abnormalities on exam. MG 3D Diag Mammo Imp W/Cad RT CC, MLO, and ID view(s) were taken of the right breast. Prior study comparison: August 14, 2018, right breast MG diag mamm implant RT w CAD. October 07, 2017, left breast MG diagnostic mammo LT wo CAD. There are scattered fibroglandular densities. Retropectoral saline implant. No significant new finding when compared with prior studies. These results were verbally communicated with the patient and result sheet given to the patient on 03/01/19. ASSESSMENT: Negative, BI-RAD 1 RECOMMENDATION: Follow-up diagnostic mammogram of the right breast in 1 year.
== END | disposition home or self-care (01) ==
LOC: RADMAMWWP 09:21
PROVIDERS: ATTEND Surgery
DX: Z85.3 Personal history of malignant neoplasm of breast (principal)
CPT/HCPCS: 77065; G0279; 77061

== ENCOUNTER → 2019-03-19 | Outpatient (CLI) | payer MEDICARE, BC ==
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
== END | disposition home or self-care (01) ==
DX: Z53.9 Procedure and treatment not carried out, unspecified reason (principal)

== ENCOUNTER → 2019-05-12 | Outpatient (CLI) | payer MEDICARE, BC ==
--- NOTE | 2019-05-12 11:24 | XR ---
EXAMINATION TYPE: XR shoulder complete LT DATE OF EXAM: 05/12/2019 COMPARISON: NONE HISTORY: Pain TECHNIQUE: Shoulder examined in 3 views FINDINGS: The humeral head articulates with the glenoid. The acromio-clavicular junction is normal. No acute fractures or dislocations are evident. A follow up study can be performed 7-10 days from acute trauma for continued pain. IMPRESSION: 1. Normal left Shoulder
== END | disposition home or self-care (01) ==
LOC: RADXRMAIN 10:50
PROVIDERS: ATTEND Physician Assistant
DX: M25.512 Pain in left shoulder (principal)

== ENCOUNTER → 2019-07-01 | Outpatient (CLI) | payer MEDICARE, BC ==
--- NOTE | 2019-07-01 14:14 | XR ---
EXAMINATION TYPE: XR chest 2V DATE OF EXAM: 07/01/2019 COMPARISON: Chest x-ray February 15, 2019. HISTORY: Renal carcinoma. TECHNIQUE: Frontal and lateral views of the chest are obtained. FINDINGS: There is no focal air space opacity, pleural effusion, or pneumothorax seen. The cardiac silhouette size remains upper limits of normal with atherosclerotic aorta. Underlying Scoliosis cente red at thoracolumbar junction redemonstrated. IMPRESSION: No acute cardiopulmonary process. No significant change from prior.
[2019-07-01 14:20] LABS: Albumin 4.2 g/dL (3.5-5.0); Bilirubin, Delta 0.1 mg/dL (0.0-0.2); Bilirubin,Unconjugated 0.2 mg/dL (0.0-1.1); Total Bilirubin 0.3 mg/dL (0.2-1.3); Total Protein 7.3 g/dL (6.3-8.2)
== END | disposition home or self-care (01) ==
LOC: RADCTMAIN 12:28
PROVIDERS: ATTEND Urology
DX: C65.1 Malignant neoplasm of right renal pelvis (principal)
CPT/HCPCS: 36415; 71046; 80076

== ENCOUNTER → 2019-09-24 | Outpatient (CLI) | payer MEDICARE ==
[2019-09-24 10:52] VITALS: BP 177/80; PULSE 58; RESP 16; TEMP 98.1
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
== END | disposition home or self-care (01) ==
LOC: WWCWWP 10:25
PROVIDERS: ATTEND Surgery
DX: Z53.9 Procedure and treatment not carried out, unspecified reason (principal)

== ENCOUNTER → 2019-10-15 | Outpatient (CLI) | payer MEDICARE | END | disposition home or self-care (01) | LOC: LABWHC1 10:21 | PROVIDERS: ATTEND Psychiatry & Neurology Pain Medicine | DX: Z01.818 Encounter for other preprocedural examination (principal) | CPT/HCPCS: 93005 ==

== ENCOUNTER → 2020-03-06 | Outpatient (CLI) | payer MEDICARE ==
--- NOTE | 2020-03-06 13:47 | MM ---
Reason for exam: additional evaluation requested from prior study. Last mammogram was performed 1 year ago. History: Patient is postmenopausal, has history of breast cancer at age 72, and has history of other cancer at age 72. Family history of breast cancer in maternal grandmother and breast cancer in mother. Mastectomy of the left breast, December 2017. Malignant US breast localization LT, October 07, 2017. Lumpectomy of the left breast, October 07, 2017. Pre-pectoral saline implant in the right breast, 2004. Physical Findings: Nurse did not find any significant physical abnormalities on exam. MG 3D Diag Mammo Imp W/Cad RT CC and MLO view(s) were taken of the right breast. Prior study comparison: March 01, 2019, right breast MG 3d diag mammo imp w/cad RT. August 14, 2018, right breast MG diag mamm implant RT w CAD. There are scattered fibroglandular densities. Stable implant right breast. No significant new findings when compared with previous films. These results were verbally communicated with the patient and result sheet given to the patient on 03/06/20. ASSESSMENT: Benign, BI-RAD 2 RECOMMENDATION: Follow-up diagnostic mammogram of the right breast in 1 year.
== END | disposition home or self-care (01) ==
LOC: RADMAMWWP 12:34
PROVIDERS: ATTEND Surgery
DX: Z09 Encounter for follow-up examination after completed treatment for conditions other than malignant neoplasm (principal); Z85.3 Personal history of malignant neoplasm of breast; Z90.12 Acquired absence of left breast and nipple; Z98.82 Breast implant status
CPT/HCPCS: 77065; G0279; 77061

== ENCOUNTER → 2020-06-08 | Outpatient (CLI) | payer MEDICARE ==
[2020-06-08 09:39] VITALS: BP 109/68; PULSE 73; RESP 16; TEMP 98.8
--- NOTE | 2020-06-08 10:27 | P.PCN ---
Date of Procedure: 06/08/20 Preoperative Diagnosis: lesion right posterior shoulder Postoperative Diagnosis: same Procedure(s) Performed: excision of lesion right shoulder Anesthesia: local Surgeon: Dana Cagle Pathology: other (right shoulder lesion) Condition: stable Disposition: same day Indications for Procedure: Lesion of concern right shoulder Description of Procedure: The area of concern was prepped using Betadine. 1% lidocaine 10 mL was used to anesthetize the area of concern. Wide excision was performed. Incision was closed using a 3-0 nylon suture. The lesion was 2 cm in size. The specimen was sent to pathology. The patient will follow up in 1 week.
== END | disposition home or self-care (01) ==
LOC: WWCWWP 08:58
PROVIDERS: ATTEND Surgery
DX: D22.61 Melanocytic nevi of right upper limb, including shoulder (principal)
CPT/HCPCS: 87070; 87102; 87116; 87205; 87206; 88305

== ENCOUNTER → 2020-06-13 | Outpatient (CLI) | payer MEDICARE ==
--- NOTE | 2020-06-13 10:17 | CT ---
EXAMINATION TYPE: CT abdomen pelvis wo con DATE OF EXAM: 06/13/2020 HISTORY: follow up to renal CA CT DLP: 894.6 mGycm. Automated Exposure Control for Dose Reduction was Utilized. TECHNIQUE: CT scan of the abdomen and pelvis is performed without oral or IV contrast. COMPARISON: Most recent CT December 29, 2018 and older CTs. FINDINGS: Within the limitations of a non-contrast study, the following observations are made. LUNG BASES: Partial visualization of right-sided breast implant on current study. Left-sided mastecto my changes partially imaged. There is mild cardiomegaly with mild to moderate left basilar linear sca rring. LIVER/GB: Subcentimeter hypodense lesion right hepatic dome posteriorly axial image 20 too small to f urther characterize not as well seen on prior studies. PANCREAS: No significant abnormality is seen. SPLEEN: No significant abnormality is seen. ADRENALS: No significant abnormality is seen. KIDNEYS: Linear hyperdensity along posterior medial aspect upper pole left kidney extending inferiorl y on current study consistent with surgical changes of partial nephrectomy. No suspicious new solid o r cystic mass on noncontrast CT. No renal calculi or hydronephrosis bilaterally.. BOWEL: Mild colonic fecal prominence right and transverse colon. No suspicious small or large bowel d ilatation. GENITAL ORGANS: Uterus surgically absent. LYMPH NODES: No greater than 1cm abdominal or pelvic lymph nodes are appreciated. OSSEOUS STRUCTURES:. Levoconvex scoliosis centered at L3 level redemonstrated. OTHER: Small fat-containing umbilical hernia. IMPRESSION: Posttreatment changes upper pole right kidney. No obvious suspicious solid or cystic mass on noncontrast CT in either kidney.
--- NOTE | 2020-06-13 10:17 | XR ---
EXAMINATION TYPE: XR chest 2V DATE OF EXAM: 06/13/2020 COMPARISON: 07/01/2019 HISTORY: 74-year-old female renal cancer TECHNIQUE: Frontal and lateral views FINDINGS: Heart upper limits of normal in size. Mild atherosclerotic arch calcifications. Strandy atelectasis l ower lungs. No consolidation or pleural effusion. IMPRESSION: No acute cardiopulmonary process.
== END | disposition home or self-care (01) ==
LOC: RADCTMAIN 09:16
PROVIDERS: ATTEND Urology
DX: C64.9 Malignant neoplasm of unspecified kidney, except renal pelvis (principal); Z98.890 Other specified postprocedural states
CPT/HCPCS: 71046; 74176

== ENCOUNTER → 2020-06-23 | Outpatient (CLI) | payer MEDICARE ==
[2020-06-23 11:22] VITALS: BP 181/76; PULSE 71; RESP 18; TEMP 98.5
--- NOTE | 2020-06-23 11:29 | P.PN ---
Progress Note - Text Progress Note Date: 06/23/20 Lana is status post excision of nevus right shoulder performed on 05/1520. Pathology was consistent with seborrheic keratosis. The patient did well incision is healing without difficulty. Physical exam: Incision: Clean and dry sutures removed Plan: 1. Remove sutures 2. Patient to follow up for surveillance regarding left mastectomy/DCIS in August 3. Right breast mammogram in February 2021
== END | disposition home or self-care (01) ==
LOC: WWCWWP 10:58
PROVIDERS: ATTEND Surgery
DX: Z53.9 Procedure and treatment not carried out, unspecified reason (principal)

== ENCOUNTER → 2020-07-04 | Outpatient (CLI) | payer MEDICARE | END | disposition home or self-care (01) | LOC: LABWHC1 10:31 | PROVIDERS: ATTEND Anesthesiology | DX: Z11.59 Encounter for screening for other viral diseases (principal) | CPT/HCPCS: U0003; C9803 ==

== ENCOUNTER → 2020-09-22 | Outpatient (CLI) | payer MEDICARE ==
[2020-09-22 09:49] VITALS: BP 151/75; PULSE 75; RESP 20; TEMP 98.5
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
== END | disposition home or self-care (01) ==
LOC: WWCWWP 09:33
PROVIDERS: ATTEND Surgery
DX: Z53.9 Procedure and treatment not carried out, unspecified reason (principal)

== ENCOUNTER → 2020-09-27 | Outpatient (CLI) | payer MEDICARE ==
--- NOTE | 2020-09-27 13:44 | CT ---
EXAMINATION TYPE: CT brain wo con DATE OF EXAM: 09/27/2020 COMPARISON: 01/14/2018 HISTORY: right sided headache. history of aneurysm CT DLP: 1126.[address] of the brain was performed. The ventricles, basal cisterns and sulci overlying the cerebral convexities demonstrate mild enlargem ent. There is no evidence for intracranial hemorrhage or sulcal effacement. There is decreased attenuation about the periventricular white matter and deep white matter of both c erebral hemispheres, compatible with chronic small vessel ischemia. Differential diagnosis does inclu de demyelination. No mass effects are seen.No midline shift. Osseous calvarium is intact. There is been prior aneurysm clipping.. Left temporal craniotomy. If symptoms persist consider MRI. IMPRESSION: 1. Age related atrophic and chronic small vessel ischemic change without acute intracranial process s een at this time.
== END | disposition home or self-care (01) ==
LOC: RADCTMAIN 13:07
PROVIDERS: ATTEND Psychiatry & Neurology Neurology
DX: I67.82 Cerebral ischemia (principal); G31.1 Senile degeneration of brain, not elsewhere classified; R51.9 Headache, unspecified; N18.9 Chronic kidney disease, unspecified; Z86.79 Personal history of other diseases of the circulatory system
CPT/HCPCS: 70450

== ENCOUNTER → 2021-01-08 | Outpatient (CLI) | payer MEDICARE ==
--- NOTE | 2021-01-08 20:12 | CT ---
EXAMINATION TYPE: CT abdomen pelvis wo con DATE OF EXAM: 01/08/2021 HISTORY: lower anterior abdominal pain, history of renal cell cancer. CT DLP: 681.9 mGycm. Automated Exposure Control for Dose Reduction was Utilized. TECHNIQUE: CT scan of the abdomen and pelvis is performed without oral or IV contrast. COMPARISON: CT abdomen and pelvis June 13, 2020 FINDINGS: Within the limitations of a non-contrast study, the following observations are made. LUNG BASES: Partial visualization of right-sided breast implant redemonstrated on current study. Ther e is stable mild cardiomegaly with mild left basilar linear scarring redemonstrated. LIVER/GB: Subcentimeter hypodense lesion right hepatic dome posteriorly axial image 12 too small to f urther characterize stable presumed benign. Contracted gallbladder current study. PANCREAS: No significant abnormality is seen. SPLEEN: No significant abnormality is seen. ADRENALS: No significant abnormality is seen. KIDNEYS: Linear hyperdensity along posterior medial aspect upper pole right kidney extending inferior ly on current study consistent with surgical changes of partial nephrectomy. No suspicious new solid or cystic mass on noncontrast CT. No renal calculi or hydronephrosis bilaterally. BOWEL: Slightly low-lying cecum into right pelvis. No suspicious small or large bowel dilatation. GENITAL ORGANS: Uterus surgically absent. LYMPH NODES: No new greater than 1cm abdominal or pelvic lymph nodes are appreciated. OSSEOUS STRUCTURES:. Levoconvex scoliosis centered at L3 level redemonstrated. Multilevel facet arthr opathy mid to lower lumbar spine. OTHER: Stable Small fat-containing umbilical hernia. IMPRESSION: No new or acute findings are evident.
== END | disposition home or self-care (01) ==
LOC: RADCTMAIN 18:16
PROVIDERS: ATTEND Family Medicine
DX: R10.9 Unspecified abdominal pain (principal); Z85.528 Personal history of other malignant neoplasm of kidney
CPT/HCPCS: 74176

== ENCOUNTER → 2021-03-12 | Outpatient (CLI) | payer MEDICARE ==
--- NOTE | 2021-03-12 09:56 | MM ---
Reason for exam: additional evaluation requested from prior study. Last mammogram was performed 1 year ago. History: Patient is postmenopausal, has history of breast cancer at age 72, and has history of other cancer at age 72. Family history of breast cancer in maternal grandmother and breast cancer in mother. Mastectomy of the left breast, December 2017. Malignant US breast localization LT, October 07, 2017. Lumpectomy of the left breast, October 07, 2017. Pre-pectoral saline implant in the right breast, 2004. Physical Findings: Nurse did not find any significant physical abnormalities on exam. MG 3D Diag Mammo Imp W/Cad RT CC and MLO view(s) were taken of the right breast. Prior study comparison: March 06, 2020, right breast MG 3d diag mammo imp w/cad RT. March 01, 2019, right breast MG 3d diag mammo imp w/cad RT. There are scattered fibroglandular densities. Stable post left mastectomy. Right retropectoral silicone implants obscures portions of the breast and limits compression. These results were verbally communicated with the patient and result sheet given to the patient on 03/12/21. ASSESSMENT: Benign, BI-RAD 2 RECOMMENDATION: Follow-up diagnostic mammogram of the right breast in 1 year.
== END | disposition home or self-care (01) ==
LOC: RADMAMWWP 08:43
PROVIDERS: ATTEND Surgery
DX: R92.8 Other abnormal and inconclusive findings on diagnostic imaging of breast (principal); Z78.0 Asymptomatic menopausal state; Z85.3 Personal history of malignant neoplasm of breast; Z80.3 Family history of malignant neoplasm of breast; Z98.82 Breast implant status
CPT/HCPCS: 77065; G0279; 77061

== ENCOUNTER → 2021-03-12 | Outpatient (CLI) | payer MEDICARE ==
--- NOTE | 2021-03-12 14:59 | BD ---
EXAMINATION TYPE: Axial Bone Density DATE OF EXAM: 03/12/2021 COMPARISON: 08.12.2017 CLINICAL HISTORY: 75 YR OLD FEMALE.....ICD-10 CODE: Z78.0 MENOPAUSAL STATE Height: 62.2 Weight: 206 FRAX RISK QUESTIONS: Glucocorticoids (More than 3mos): YES (Ex: prednisone, prednisolone, methylprednisolone, dexamethasone, and hydrocortisone). History of Fracture in Adulthood: YES RISK FACTORS HISTORY OF: HX OF RIB FX WITH EXERCISE, IN HER 50S Postmenopausal woman: YES, AT ABOUT AGE 48 Lost more than 2 inches in height since high school: YES Frequent falls: YES, USING CANE, Poor Health: YES, CANCER, [place] Hyperparathyroidism: UNKNOWN Adrenal Insufficiency: UNKNOWN MEDICATIONS: Prednisone or other steroids: FOR COPD AND ASTHMA, YES, PREDNISONE Thyroid Medications: YES, ARMOR THYROID, FOR ABOUT 20+ YRS Additional Medications: METHOTREXATE, TAMOXIFEN, REFLUX MEDS, CHOLESTEROL MEDS, STEROIDS, VIT D AND C ALCIUM Additional History: FIBROMYALGIA, P[place] DISEASE, MASTECTOMY LT BREAST, REFLUX, CHOLESTEROL, COPD AND ASTHMA EXAM MEASUREMENTS: Bone mineral densitometry was performed using the [employer] System. Bone mineral density as measured about the Lumbar spine is: ----- L1-L4(G/cm2): 1.140 T Score Values are as follows: ----- L1: -1.1 ----- L2: -2.0 ----- L3: 0.4 ----- L4: 1.0 ----- L1-L4: -0.3 Bone mineral density has: Decreased -4.9% since study of: 08.12.2017 Bone mineral density about the R hip (g/cm2): 0.732 Bone mineral density about the L hip (g/cm2): 0.808 T Score values are as follows: -----R Neck: -1.9 -----L Neck: -1.5 -----R Total: -2.2 -----L Total: -1.6 Bone mineral density has: Decreased -5.4% since study of: 08.12.2017 FRAX%s: THERE IS A 26.2% CHANCE FOR A MAJOR OSTEOPOROTIC FX AND A 6.6% FOR HIP.......PROBABILITY F OR FX IN 10 YRS TIME IMPRESSION: Osteopenia. NOTE: T-SCORE=SD OF THE YOUNG ADULT MEAN.
== END | disposition home or self-care (01) ==
LOC: RADBDWWP 08:46
PROVIDERS: ATTEND Family Medicine
DX: M85.89 Other specified disorders of bone density and structure, multiple sites (principal)
CPT/HCPCS: 77080

== ENCOUNTER → 2021-05-25 | Outpatient (CLI) | payer MEDICARE ==
--- NOTE | 2021-05-25 12:35 | XR ---
EXAMINATION TYPE: XR chest 2V DATE OF EXAM: 05/25/2021 COMPARISON: 06/13/2020 INDICATION: Follow-up renal cancer 2018 TECHNIQUE: Frontal and lateral views of the chest are obtained. FINDINGS: The heart size is normal. The pulmonary vasculature is normal. The lungs are clear. Scoliosis is present. IMPRESSION: 1. No acute pulmonary process. 2. No suspicious changes to suggest metastatic renal cancer, based on the chest x-ray
[2021-05-25 23:04] LABS: ALT 15 U/L (8-44); AST 19 U/L (13-35); African American GFR (CKD) 85.3 (60.0-200.0); Albumin 4.2 g/dL (3.8-4.9); Albumin/Globulin Ratio 1.88 (1.60-3.17); Alkaline Phosphatase 49 U/L (41-126); BUN/Creat Ratio 24.65 Ratio (12.00-20.00); Blood Urea Nitrogen 19.5 mg/dL (9.0-27.0); Calcium 8.5 mg/dL (8.7-10.3); Carbon Dioxide 21.6 mmol/L (21.6-31.8); Chloride 107 mmol/L (96-109); Globulin 2.3 g/dL (1.6-3.3); Glucose 97 mg/dL (70-110); Non-African American GFR(CKD) 73.6 (60.0-200.0); Potassium 3.9 mmol/L (3.5-5.5); Sodium 142 mmol/L (135-145); Total Bilirubin <0.20 mg/dL (0.30-1.20); Total Protein 6.5 g/dL (6.2-8.2)
== END | disposition home or self-care (01) ==
LOC: LABWHC1 11:51
PROVIDERS: ATTEND Urology
DX: Z08 Encounter for follow-up examination after completed treatment for malignant neoplasm (principal); D49.4 Neoplasm of unspecified behavior of bladder; Z85.528 Personal history of other malignant neoplasm of kidney
CPT/HCPCS: 36415; 71046; 80053

== ENCOUNTER → 2022-03-14 | Outpatient (CLI) | payer MEDICARE ==
--- NOTE | 2022-03-14 14:51 | MM ---
Reason for Exam: Additional evaluation requested from prior study. Last screening mammogram was performed 12 month(s) ago. Patient History: Menarche at age 17. First Full-Term at age 19. Left ovary removed at age 47. Right ovary removed at age 47. Hysterectomy at age 47. Postmenopausal. Breast cancer, left, age 72. Other cancer, age 72. 12/2017, Mastectomy on the Left side. 10/07/2017, Lumpectomy on the Left side. Malignant Core Biopsy. 2004, Implant on the right side. Maternal grandmother had breast cancer. Mother had breast cancer. Prior Study Comparison: 03/01/2019 Right Diagnostic Mammogram, [facility]. 03/06/2020 Right Diagnostic Mammogram, [facility]. 03/12/2021 Right Diagnostic Mammogram, [facility]. Tissue Density: Right: There are scattered fibroglandular densities. Findings: Analyzed By CAD. Retropectoral saline implant is noted. Some scattered benign vascular calcifications. Otherwise, no significant change from prior exams. Overall Assessment: Negative, BI-RAD 1 Management: Screening Mammogram of the right breast in 1 year. 1. Continue annual screening exams of the right breast. 2. Patient should continue monthly self breast exam. A clinical breast exam by your physician is recommended on an annual basis. 3. This exam should not preclude additional follow-up of suspicious palpable abnormalities. Results were given to the patient verbally at the time of exam. Electronically signed and approved by: Rigoberto Pritchard M.D. Radiologist
== END | disposition home or self-care (01) ==
LOC: RADMAMWWP 14:13
PROVIDERS: ATTEND Surgery
DX: R92.8 Other abnormal and inconclusive findings on diagnostic imaging of breast (principal); Z78.0 Asymptomatic menopausal state; Z80.3 Family history of malignant neoplasm of breast
CPT/HCPCS: 77065; G0279; 77061

== ENCOUNTER → 2022-03-22 | Outpatient (CLI) | payer MEDICARE ==
[2022-03-22 10:04] VITALS: BP 155/74; PULSE 59; RESP 18; TEMP 98.2
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
== END ==
LOC: WWCWWP 09:31
PROVIDERS: ATTEND Surgery
DX: Z08 Encounter for follow-up examination after completed treatment for malignant neoplasm (principal); Z85.3 Personal history of malignant neoplasm of breast; M79.7 Fibromyalgia; M54.50 Low back pain, unspecified; M54.30 Sciatica, unspecified side; G89.29 Other chronic pain; R25.1 Tremor, unspecified; M46.1 Sacroiliitis, not elsewhere classified; G43.909 Migraine, unspecified, not intractable, without status migrainosus; Z88.5 Allergy status to narcotic agent; Z88.1 Allergy status to other antibiotic agents; Z91.09 Other allergy status, other than to drugs and biological substances; Z91.02 Food additives allergy status; Z88.8 Allergy status to other drugs, medicaments and biological substances; Z87.891 Personal history of nicotine dependence

== ENCOUNTER → 2022-06-07 | Outpatient (CLI) | payer MEDICARE ==
--- NOTE | 2022-06-07 09:14 | XR ---
EXAMINATION TYPE: XR chest 2V DATE OF EXAM: 06/07/2022 COMPARISON: 05/25/2021 INDICATION: Renal cancer TECHNIQUE: Frontal and lateral views of the chest are obtained. FINDINGS: The heart size is normal. The pulmonary vasculature is normal. The lungs are clear. Scoliosis is present. IMPRESSION: 1. No acute pulmonary process.
--- NOTE | 2022-06-07 10:44 | CT ---
EXAMINATION TYPE: CT abdomen w con DATE OF EXAM: 06/07/2022 COMPARISON: 01/08/2021 HISTORY: 76-year-old female C64.1, Renal cancer-right side. History of left breast cancer TECHNIQUE: Contiguous axial scanning of the abdomen following administration of 70 ml Isovue 300 IV c ontrast. Delayed images through the kidneys and coronal/sagittal reconstructions performed. CT DLP: 730.8 mGycm Automated exposure control for dose reduction was used. FINDINGS: Heart upper limits of normal in size without pericardial effusion. Strandy atelectasis or scarring at the left base. No pleural effusion. Right breast prosthesis partially visualized. There is a small hiatal hernia. No focal liver lesion. No biliary ductal dilatation. Portal venous system is patent. Gallbladder with junctional fold, adrenal glands, left kidney, spleen, and pancreas within normal laboy its. There is surgical material along the posterior aspect of the upper right kidney. No suspicious mass o r nodularity is identified here. No dilated small bowel, free fluid, or free air. No mesenteric or retroperitoneal lymphadenopathy. Mild stool burden. No pericolic inflammatory change. Hypertrophic facet arthropathy mid to lower lumbar spine. Degenerative grade 1 anterolisthesis L5-S1. Levoconvex scoliosis of the lumbar spine. IMPRESSION: POSTSURGICAL CHANGE POSTERIOR ASPECT UPPER POLE RIGHT KIDNEY. NO EVIDENCE FOR LOCOREGIONAL RECURRENCE OR METASTATIC DISEASE. INCIDENTAL SMALL HIATAL HERNIA AND RIGHT BREAST IMPLANT.
== END | disposition home or self-care (01) ==
LOC: RADCTMAIN 08:46
PROVIDERS: ATTEND Urology
DX: C64.1 Malignant neoplasm of right kidney, except renal pelvis (principal); K44.9 Diaphragmatic hernia without obstruction or gangrene; Z85.3 Personal history of malignant neoplasm of breast
CPT/HCPCS: 82565; 84520; 71046; 74160; 36415; Q9967 ×2

== ENCOUNTER → 2023-06-03 | Outpatient (CLI) | payer MEDICARE ==
--- NOTE | 2023-06-03 11:50 | XR ---
EXAMINATION TYPE: XR chest 2V DATE OF EXAM: 06/03/2023 11:36 AM COMPARISON: Chest radiographs from 06/07/2022 TECHNIQUE: XR chest 2V Frontal and lateral views of the chest. CLINICAL INDICATION:Female, 77 years old with history of C64.1 RENAL CANCER; FINDINGS: Lungs/Pleura: There is no evidence of pleural effusion, focal consolidation, or pneumothorax. Pulmonary vascularity: Unremarkable. Heart/mediastinum: Cardiomediastinal silhouette is enlarged and stable. Atherosclerotic calcificatio ns are seen in the aorta. Musculoskeletal: No acute osseous pathology. Dextrocurvature curvature of the thoracic spine. IMPRESSION: No acute cardiopulmonary disease/process.
[2023-06-03 11:55] LABS: ALT 21 U/L (4-34); AST 27 U/L (14-36); African American GFR (CKD) 77 (>60 ml/min/1.73 sqM); Albumin 4.4 g/dL (3.5-5.0); Albumin/Globulin Ratio 1.3; Alkaline Phosphatase 64 U/L (38-126); Anion Gap 9 mmol/L; Blood Urea Nitrogen 15 mg/dL (7-17); Calcium 9.3 mg/dL (8.4-10.2); Carbon Dioxide 25 mmol/L (22-30); Chloride 106 mmol/L (98-107); Globulin 3.3 g/dL; Glucose 132 mg/dL (74-99); Non-African American GFR(CKD) 66 (>60 ml/min/1.73 sqM); Potassium 4.3 mmol/L (3.5-5.1); Sodium 140 mmol/L (137-145); Total Bilirubin 0.4 mg/dL (0.2-1.3); Total Protein 7.7 g/dL (6.3-8.2)
--- NOTE | 2023-06-03 13:05 | CT ---
EXAMINATION TYPE: CT abdomen w con DATE OF EXAM: 06/03/2023 COMPARISON: 06/07/2022 HISTORY: f/u for hx of Rt renal ca CT DLP: 866.90 mGycm Automated exposure control for dose reduction was used. TECHNIQUE: Helical acquisition of images was performed from the lung bases through the top of iliac crest to include entire abdomen. CONTRAST: Performed with Oral Contrast and with IV Contrast, patient injected with 100 mL of Isovue 300. FINDINGS: LUNG BASES: No significant abnormality is appreciated. Postsurgical change involving the breast. Subs egmental atelectasis at the lung base. Mild cardiomegaly with mild coronary artery calcification and calcification near the aortic valve. LIVER/GB: Small gallstones. PANCREAS: No significant abnormality is seen. SPLEEN: No significant abnormality is seen. ADRENALS: No significant abnormality is seen. KIDNEYS: Postsurgical change involving the posterior upper pole of the right kidney is stable. No hydronephrosis or nephrolithiasis. No solid or cystic renal mass. BOWEL: No significant abnormality is seen. LYMPH NODES: No significant abnormality is seen. OSSEOUS STRUCTURES: Scoliotic curvature of the spine with hypertrophic and degenerative changes. Mul tilevel facet arthropathy FREE AIR: No free air is visualized. OTHER: Small hiatal hernia. Early anterior abdominal wall hernia containing peritoneal fat small segm ent of colon. Obstruction IMPRESSION: 1. Postsurgical change of the right kidney upper pole compatible with partial nephrectomy. No evidenc e of recurrent or new suspicious solid or cystic mass. No evidence of metastatic disease. 2. Tiny gallstones.
== END | disposition home or self-care (01) ==
LOC: RADCTMAIN 11:02
PROVIDERS: ATTEND Urology
DX: C64.1 Malignant neoplasm of right kidney, except renal pelvis (principal); K80.20 Calculus of gallbladder without cholecystitis without obstruction; Z98.890 Other specified postprocedural states
CPT/HCPCS: 80053; 71046; 74160; 36415; Q9967

== ENCOUNTER → 2024-03-18 | Outpatient (CLI) | payer MEDICARE ==
--- NOTE | 2024-03-18 14:26 | MM ---
Reason for Exam: Additional evaluation requested from prior study. Last screening mammogram was performed 12 month(s) ago. Patient History: Menarche at age 17. First Full-Term at age 19. Left ovary removed at age 47. Right ovary removed at age 47. Hysterectomy at age 47. Postmenopausal. Breast cancer, left, age 72. Other cancer, age 72. 12/2017, Mastectomy on the Left side. 10/07/2017, Lumpectomy on the Left side. Malignant Core Biopsy. 2004, Implant on the right side. Maternal grandmother had breast cancer. Mother had breast cancer. Prior Study Comparison: 03/12/2021 Right Diagnostic Mammogram, [facility]. 03/14/2022 Right MG 3D diag mammo imp w/cad RT, [facility]. 03/14/2023 Right MG 3D diag mammo imp w/cad RT, [facility]. Tissue Density: Right: There are scattered areas of fibroglandular density. Findings: Analyzed By CAD. Breast implant surgery noted. There is benign-appearing calcifications. No dominant mass or architectural distortion. No suspicious grouped calcifications. Overall Assessment: Benign, BI-RAD 2 Management: Screening Mammogram of the right breast in 1 year. . Results were given to the patient verbally at the time of exam. Patient should continue monthly self-breast exams. A clinical breast exam by your physician is recommended on an annual basis. This exam should not preclude additional follow-up of suspicious palpable abnormalities. Note on Sherry scores and lifetime risk: 1. A Sherry score greater than 3% is considered moderate risk. If this is the case, consider specialist referral to assess eligibility for a risk reducing agent. 2. If overall lifetime risk for the development of breast cancer is 20% or higher, the patient may qualify for future screening with alternating mammogram and breast MRI. Electronically signed and approved by: Mike Abel M.D. Radiologis
== END | disposition home or self-care (01) ==
LOC: RADMAMWWP 13:46
PROVIDERS: ATTEND Surgery
DX: Z85.3 Personal history of malignant neoplasm of breast (principal); R92.321 Mammographic fibroglandular density, right breast; Z78.0 Asymptomatic menopausal state; Z80.3 Family history of malignant neoplasm of breast
CPT/HCPCS: 77065; G0279; 77061

== ENCOUNTER → 2024-03-24 | Outpatient (CLI) | payer MEDICARE ==
[2024-03-24 10:10] VITALS: BP 158/77; PULSE 64; RESP 17; TEMP 98.3
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
== END ==
LOC: WWCWWP 09:53
PROVIDERS: ATTEND Surgery
DX: N60.11 Diffuse cystic mastopathy of right breast (principal); M79.7 Fibromyalgia; M54.40 Lumbago with sciatica, unspecified side; G43.909 Migraine, unspecified, not intractable, without status migrainosus; R25.1 Tremor, unspecified; M54.9 Dorsalgia, unspecified; M46.1 Sacroiliitis, not elsewhere classified; G89.4 Chronic pain syndrome; Z80.3 Family history of malignant neoplasm of breast; Z87.19 Personal history of other diseases of the digestive system; Z90.5 Acquired absence of kidney; Z90.710 Acquired absence of both cervix and uterus; Z85.3 Personal history of malignant neoplasm of breast; Z88.8 Allergy status to other drugs, medicaments and biological substances; Z88.5 Allergy status to narcotic agent; Z91.09 Other allergy status, other than to drugs and biological substances; Z91.018 Allergy to other foods; Z87.891 Personal history of nicotine dependence; Z90.12 Acquired absence of left breast and nipple

== ENCOUNTER → 2025-03-21 | Outpatient (CLI) | payer MEDICARE ==
--- NOTE | 2025-03-21 13:39 | MM ---
Reason for Exam: Additional evaluation requested from prior study. Last screening mammogram was performed 12 month(s) ago. Patient History: Menarche at age 17. First Full-Term at age 19. Left ovary removed at age 47. Right ovary removed at age 47. Hysterectomy at age 47. Postmenopausal. Breast cancer, left, age 72. Other cancer, age 72. 12/2017, Mastectomy on the Left side. 10/07/2017, Lumpectomy on the Left side. Malignant Core Biopsy. 2004, Implant on the right side. Maternal grandmother had breast cancer. Mother had breast cancer. Prior Study Comparison: 03/14/2022 Right MG 3D diag mammo imp w/cad RT, [facility]. 03/14/2023 Right MG 3D diag mammo imp w/cad RT, [facility]. 03/18/2024 Right MG 3D diag mammo imp w/cad RT, [facility]. Tissue Density: Right: There are scattered areas of fibroglandular density. Findings: Analyzed By CAD. Retropectoral saline implant is redemonstrated. No significant change from prior exams. Overall Assessment: Benign, BI-RAD 2 Management: Screening Mammogram of the right breast in 1 year. Results were given to the patient verbally at the time of exam. Patient should continue monthly self-breast exams. A clinical breast exam by your physician is recommended on an annual basis. This exam should not preclude additional follow-up of suspicious palpable abnormalities. [facility], , 03/21/2025 1:36 PM. Electronically signed and approved by: Rigoberto Pritchard M.D. Radiologist
== END | disposition home or self-care (01) ==
LOC: RADMAMWWP 13:04
PROVIDERS: ATTEND Surgery
DX: R92.321 Mammographic fibroglandular density, right breast (principal); Z78.0 Asymptomatic menopausal state; Z85.3 Personal history of malignant neoplasm of breast; Z80.3 Family history of malignant neoplasm of breast
CPT/HCPCS: 77061; 77065

== ENCOUNTER → 2025-03-24 | Outpatient (CLI) | payer MEDICARE ==
[2025-03-24 11:11] VITALS: BP 156/70; PULSE 71; RESP 16; TEMP 97.9
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
== END ==
LOC: WWCWWP 10:53
PROVIDERS: ATTEND Surgery
DX: D05.12 Intraductal carcinoma in situ of left breast (principal); M79.7 Fibromyalgia; M54.30 Sciatica, unspecified side; G43.909 Migraine, unspecified, not intractable, without status migrainosus; M46.1 Sacroiliitis, not elsewhere classified; M54.50 Low back pain, unspecified; R25.1 Tremor, unspecified; V99.XXXA Unspecified transport accident, initial encounter; Z87.19 Personal history of other diseases of the digestive system; Z98.82 Breast implant status; Z88.6 Allergy status to analgesic agent; Z88.8 Allergy status to other drugs, medicaments and biological substances; Z91.09 Other allergy status, other than to drugs and biological substances; Z91.018 Allergy to other foods; Z87.891 Personal history of nicotine dependence